=== PATIENT | male | born 1950 | race Caucasian/White ===

== ENCOUNTER 2016-04-22 09:44 | Inpatient (IN) | payer MEDICARE, OTHER ==
[2016-04-22] VITALS (9 sets, daily range): BP systolic 88–120; BP diastolic 47–86; PULSE 61–91; RESP 11–20; O2SAT 98–100
[~2016-04-22] VITALS: Ht 177.8 cm; Wt 85.9 kg
[2016-04-22] MEDS ORDERED: 0.9% Sodium Chloride 1,000 ML IV ONE (10:25)
--- NOTE | 2016-04-22 10:25 | ED.REPORT ---
HPI-General Illness Date of Service Apr 22, 2016 ED Provider: Hieu Conklin MD I was called to the bedside because the patient had lost consciousness while on the commode. Pt appeared pale with a heart rate in the low 30s on the monitor. He was initially unresponsive without palpable radial pulses or response to sternal rub. He was assisted to the bed by several nurses and began to regain consciousness. Good femoral pulses with heart rate in the 90's. Pt presented to the ED via EMS with concerns for multiple ground levels falls. He has montez history of DM and HTN who is anticoagulated on Coumadin for a CVA that occurred [id number]. He reports that he has been "losing his strength" and falling multiple times per day. Pt states that he lives with his son, and last fell this morning. He reports that he has had multiple trauma to his head during these falls. Pt denies any headache, chest pain, shortness of breath or previous loss of consciousness. He states that he does he pre-syncopal when he attempt to sit up quickly. Pt's son reports that he has been finding a large amount of blood coming from his rectum, reported soaking through his underwear and onto his bed while sleeping. Pt has no other complaints. Nursing Notes Stated Complaint: GROUND LEVEL FALL Chief Complaint: Multiple Trauma/Fall Nursing Notes Reviewed: Yes Allergies: Coded Allergies: hydromorphone (Verified Adverse Reaction, Intermediate, Agitation, 04/22/16) Scheduled Aspirin (Aspirin) 81 Mg Tablet 81 MG PO DAILY Atenolol (Atenolol) 25 Mg Tablet 25 MG PO DAILY Atorvastatin (Lipitor) 20 Mg Tablet 20 MG PO DAILY Losartan Potassium (Losartan Potassium) 50 Mg Tablet 50 MG PO DAILY Metformin (Metformin) 500 Mg Tablet 500 MG PO DAILY Omeprazole Magnesium (Prilosec Otc) 20 Mg Tablet. 20 MG PO DAILY Warfarin Sodium (Warfarin Sodium) 2.5 Mg Tablet 2.5 MG PO T,W, TH, S, S Warfarin Sodium (Warfarin Sodium) 2.5 Mg Tablet 1.25 MG PO M, F General Time Seen by MD: 10:01 Chief Complaint Other (Multiple Falls) Hx Obtained From: Patient, Son Arrived By: Ambulance Sudden in Onset?: Yes Onset Occurred: Onset unknown Symptom Duration: Since onset Caused by: Accidental Severity: Current: No pain currently Severity: Maximum: No pain Similar Sx Previous: Yes Past Medical History Past Medical History Anticoagulated on Coumadin from CVA Heart attack in 1988 Reports: Diabetes mellitus, Hypertension Ambulatory Status Independent Review of Systems Full Review of Systems Constitutional: Denies: Chills, Fever, Malaise, Weakness - generalized Respiratory: Denies: Non-productive cough, Shortness of breath, Wheezing Cardiovascular: Denies: Chest pain GI: Denies: Abdominal pain, Constipation, Diarrhea, Nausea, Vomiting Male: Denies Dysuria, Denies Flank pain, Denies Urinary frequency, Denies Urinary urgency Musculoskeletal: Denies: Back pain, Neck pain Neurologic: Reports: Syncope, Weakness, Denies: Change LOC, Dizziness, Headache Complete sys rev & neg: except as marked. Physical Exam Vital Signs Vital Signs Date Time Temp Pulse Resp B/P Pulse Ox O2 Delivery O2 Flow Rate FiO2 04/22/16 10:28 62 11 120/80 100 Room Air 04/22/16 09:55 36.7 77 102/66 100 Room Air Initial VS: Reviewed Neck: Supple, Non-tender, Full range of motion Respiratory: Breath sounds normal, Clear to auscultation, No respiratory distress Abdomen / GI: Soft, Non-tender, No guarding, No rebound, No distention Neurologic: Alert, Oriented, Nonfocal General/Constitutional: Awake, Alert, Well appearing, Well developed, Well nourished, Cooperative Appearance / Presentation: Positive: Pale Good radial and femoral pulses No signs of soft tissue injury Ecchymosis about bilateral knees Diaphoretic Head / Eyes: Atraumatic, Normocephalic, PERRL, EOMI No obvious signes of trauma to head, face or scalp ENT: Atraumatic, Airway patent, Pharynx NL Mouth: Positive: Mucous membranes dry Cardiovascular: Heart rate NL, Regular rhythm, Heart sounds NL, No gallop, No murmurs, No rubs No calf swelling or tenderness Rectum / Perineum: Atraumatic Large patch of ecchymosis about right lateral thigh Several external hemorrhoids without active bleeding Brown stool present Interpretation & Diagnostics Lab Results Interpretation Result Diagram: 04/22/16 1025 04/22/16 1130 Test 04/22/16 10:25 04/22/16 11:30 White Blood Count 10.8th/mm3 (3.8-10.1) Red Blood Count 2.29mil/mm3 (4.40-5.80) Hemoglobin 7.7g/dL (13.8-17.2) Hematocrit 22.8% (41.0-50.0) Mean Corpuscular Volume 99.6fL (81-100) Mean Corpuscular Hemoglobin 33.6pg (27.0-35.0) Mean Corpuscular Hemoglobin Concent 33.8% (32.0-37.0) Red Cell Distribution Width 13.2% (12.3-15.4) Platelet Count 79bil/L (150-400) Neutrophils (%) (Auto) 67.0% (40-74) Lymphocytes (%) (Auto) 22.3% (14-46) Monocytes (%) (Auto) 10.3% (4-12) Eosinophils (%) (Auto) 0.1% (0-5) Basophils (%) (Auto) 0.1% (0-3) Prothrombin Time 102.8sec (8.1-12.5) Prothromb Time International Ratio 9.18ratio Sodium Level 136mEq/L (134-144) Potassium Level 4.6mEq/L (3.5-5.2) Chloride Level 94mEq/L (97-108) Carbon Dioxide Level 19mmol/L (18-29) Blood Urea Nitrogen 25mg/dL (8-27) Creatinine 1.94mg/dL (0.76-1.27) Estimat Glomerular Filtration Rate 37mL/min (>59) Glucose Level 149mg/dL (60-99) Lactic Acid Level 4.3mmol/L (0.4-2.0) Calcium Level 8.0mg/dL (8.5-10.1) Magnesium Level 1.0mg/dL (1.6-2.6) Total Bilirubin 1.9mg/dL (0.0-1.2) Aspartate Amino Transf (AST/SGOT) 232U/L (0-50) Alanine Aminotransferase (ALT/SGPT) 78U/L (0-44) Alkaline Phosphatase 59U/L (25-160) Troponin T < 0.010ug/L (0.0-0.011) Pro-B-Type Natriuretic Peptide 7222pg/mL (0-376) Total Protein 7.1g/dL (6.4-8.4) Albumin 3.3g/dL (3.4-5.0) Alcohol, Quantitative < 10mg/dL (0-10) ECG Interpretation ECG Interpretation: SR - 63 Anteroseptal Q waves Borderline ST elevation, less than 1 cm in anteroseptal leads Diffuse T wave abnormalities in anterolateral leads with t wave flattening and inversions No prior EKG available Time: 10:26 Interpreted by: ED physician X-Ray Chest Interpretation Chest Xray Interpretation: IMPRESSION: A No acute cardiopulmonary disease process. Dictated by: Michaela Reyna MD, PhD on 04/22/2016 at 11:27 Interpretation / Wet Read by: Interpret - Radiologist X-Ray Interpretation Xray Interpretation: IMPRESSION: No fracture. No acute osseous lesion. If there are persistent symptoms or clinical suspicion for pathology, then repeat radiographs or advanced imaging (CT, MRI or bone scan) should be considered for further evaluation. Dictated by: Michaela Reyna MD, PhD on 04/22/2016 at 11:27 X-Ray Ordered: Hip right Interpretation / Wet Read by: Interpret - Radiologist CT Head Interpretation IMPRESSION: No acute intracranial disease process. Dictated by: Michaela Reyna MD, PhD on 04/22/2016 at 11:03 Interpretation / Wet Read by: Interpret - Radiologist Re-Eval/Medical Decision Med Decision/Clinical Course This is a 65-year-old male with a history of prior CVA, on Coumadin for unclear reasons who presents emergency Department with generalized weakness and multiple ground-level falls recently. Shortly after his arrival I am called to the bedside because he lost consciousness while on the commode. He appeared pale/ashen in appearance with a heart rate of 30 on the monitor and no palpable radial pulses. He was immediately transferred to the bed by which time his heart rate increased to 90 and he had strong femoral pulses. He had initial blood pressure upon reevaluation in the 80s over 40s though this improved to a map of greater than 65. IV access was obtained and IV fluid bolus was administered. Laboratory studies were notable as below: Leukocytosis: 10.8 Hematocrit: 22.8, Significantly decreased from prior in 2007 of 45.2 BUN: 25 Creatinine: 1.94 very increased from baseline of 1 Glucose within normal limits Calcium: 8 Magnesium: 1 Total bilirubin: 1.9 AST: 232 ALT:78 Troponin: neg BNP: 7222 INR: 9.18 The patient's supratherapeutic INR and he was treated with 10 mg IV vitamin K. The patient's magnesium was repleted. EKG was notable as above. CT head obtained in the setting of the suprapubic INR and multiple ground-level falls demonstrated no acute intracranial hemorrhage. The patient's fecal matter was noted to be brown in color without any melanotic appearance or bright red blood. Rectal examination revealed no bright red blood or obvious active source of bleeding though the patient's son reported that he has had bright red blood in his underwear intermittently as of late. At this time, the patient is rapidly stable with good IV access so he requires admission or further workup of his significant anemia, acute kidney injury, electrolyte abnormalities, elevated LFTs, elevated bilirubin and supratherapeutic INR. We will likely require consultation to GI and endoscopy. While he had an episode of severe bradycardia and hypotension I feel that the primary etiology of this was vasovagal as opposed to acute blood loss anemia to his clinical picture is not entirely clear. He will require close monitoring. He was transferred in stable condition. Source of Hx: Old records, Family Time of Eval: 12:31 Re-Evaluation/Progress Note: Pt is rechecked and informed of his labs and the plan to admit him to the hospital at this time. He understands and agrees, all questions are addressed. Consultation : Referral / Consult Name: Jaron Keane DO Consulted With: Hospitalist Call Returned at: 12:46 Mechanical Commissioning Engineer: Will see patient, Agrees with plan, Accepts admit Counseled Regarding: Diagnosis, Lab results, Need for admission Discharge & Departure Primary Impression: Syncope Syncope type: unspecified Qualified Code: R55 - Syncope and collapse Additional Impressions: Hypotension Hypotension type: unspecified hypotension type Qualified Code: I95.9 - Hypotension, unspecified Bradycardia Severe anemia Acute renal failure Acute renal failure type: unspecified Qualified Code: N17.9 - Acute kidney failure, unspecified Elevated transaminase level Rectal bleed Fall from ground level Disposition: ADMITTED TO HOSPITAL Discharge Condition All VS Reviewed: Yes Condition: Stable Referrals: Hosea Groves DO (PCP) Crit Care Except Billable Proc Time Spent: 135-164 minutes Services Performed: Patient management by me, Time spent at bedside, Reviewing test results, Reviewing imaging, Discussing patient care, Documentation in record, Time with fam/surrogate Scribe Attestation Portions of this note were transcribed by Pratibha Gillespie. I, Dr. Conklin personally performed the history, physical exam and medical decision-making; I reviewed and confirmed the accuracy of the information in the transcribed note. Signed by: Skyler Ricci, 04/22/2016 [Time]. copies to: Hosea Groves Beck O MD Apr 22, 2016 10:25 DANIEL GILLESPIE Apr 22, 2016 10:30
--- NOTE | 2016-04-22 11:04 | DRSVH ---
PROCEDURE: CT BRAIN WITHOUT CONTRAST ([id number]) INDICATIONS: trauma, coumadin TECHNIQUE: Noncontrast 4.5 mm thick angled axial sections acquired from the foramen magnum to the vertex, with c oronal reformats. COMPARISON: [facility], CT, BRAIN W/O CONTRAST, 10/23/2007, 21:27. [facility], CT, BRAIN W/O CONTRAST, 10/29/2000, 13:25. FINDINGS: Image quality: Excellent. CSF spaces: Basal cisterns are patent. No extra-axial fluid collections. The ventricles are symmet abbey in size and shape. Brain: No intracranial bleeds or masses. There is cerebral volume loss for age, with resultant vent ricular and sulcal prominence. Chronic right frontal and right basal ganglia infarcts noted. There ar e periventricular and deep white matter chronic small vessel ischemic changes. There is intracranial internal carotid artery atherosclerosis. Skull and face: Calvarium and visualized facial bones appear intact, without suspicious lesions. Sinuses: Visualized sinuses and mastoids are clear. IMPRESSION: No acute intracranial disease process. Dictated by: Michaela Reyna MD, PhD on 04/22/2016 at 11:03 Approved by: Michaela Reyna MD, PhD on 04/22/2016 at 11:03
[2016-04-22] MEDS ORDERED: LISI30TA5 PO (11:16)
[2016-04-22] MEDS ORDERED: WARF2.5T82 PO ×2 (11:16)
[2016-04-22] MEDS ORDERED: METF500T4 PO (11:16)
[2016-04-22] MEDS ORDERED: ATEN25TA PO (11:16)
[2016-04-22] MEDS ORDERED: ASPI-973 PO (11:16)
[2016-04-22] MEDS ORDERED: ATOR20TA PO (11:16)
[2016-04-22] MEDS ORDERED: OMEP20TA24 PO (11:16)
--- NOTE | 2016-04-22 11:28 | DRSVH ---
PROCEDURE: X-RAY PELVIS, ONE OR TWO VIEWS ([id number]) INDICATIONS: GROUND LEVEL FALL TECHNIQUE: One view(s) of the pelvis acquired. COMPARISON: None. FINDINGS: Bones: No fractures or dislocations. No suspicious bony lesions. Bilateral hip osteoarthritis noted . Soft tissues: Visualized bowel gas pattern is normal. No suspicious soft tissue calcifications. IMPRESSION: No fracture. No acute osseous lesion. If there are persistent symptoms or clinical suspi cion for pathology, then repeat radiographs or advanced imaging (CT, MRI or bone scan) should be cons idered for further evaluation. Dictated by: Michaela Reyna MD, PhD on 04/22/2016 at 11:27 Approved by: Michaela Reyna MD, PhD on 04/22/2016 at 11:27
--- NOTE | 2016-04-22 11:29 | DRSVH ---
PROCEDURE: X-RAY CHEST ONE VIEW, PORTABLE ([id number]) INDICATIONS: ALTERED MENTAL STATUS TECHNIQUE: One view of the chest was acquired. COMPARISON: None. FINDINGS: Surgical changes and devices: None. Lungs and pleura: No pleural effusions or pneumothorax. Lungs are clear. Mediastinum: Mediastinal contours appear normal. Heart size is normal. Bones and chest wall: No suspicious bony lesions. Overlying soft tissues appear unremarkable. IMPRESSION: A No acute cardiopulmonary disease process. Dictated by: Michaela Reyna MD, PhD on 04/22/2016 at 11:27 Approved by: Michaela Reyna MD, PhD on 04/22/2016 at 11:27
[2016-04-22 11:31] LABS: BASOPHILS % (AUTO) 0.1 % (0-3); EOSINOPHILS % (AUTO) 0.1 % (0-5); MONOCYTES % (AUTO) 10.3 % (4-12); Mean Corpuscular Hemoglobin 33.6 pg (27.0-35.0); Mean Corpuscular Volume 99.6 fL (81-100); Platelet Count 79 bil/L (150-400)
[2016-04-22 12:10] LABS: TROPONIN T < 0.010 ug/L (0.0-0.011)
[2016-04-22 12:10] LABS: INR 9.18 ratio
[2016-04-22] MEDS ORDERED: Magnesium Sulf 2 Gm/50mL Water 2 GM in IV Premix 1 EACH IV ONE (12:25)
[2016-04-22] MEDS ORDERED: Phytonadione (Adult) 10 MG in Dextrose 5%-Pha MIX 50 ML IV ONE (12:25)
[2016-04-22] MEDS ORDERED: Alum-Mag Hydrox-Simeth 30 mL Suspension PO PRN (13:00)
[2016-04-22] MEDS ORDERED: Ondansetron 2 mg/mL 2 mL Inj IVPUSH PRN (13:00)
[2016-04-22] MEDS ORDERED: Polyethylene Glycol (PEG) 17 Gm Powder PO PRN (13:00)
[2016-04-22] MEDS ORDERED: 0.9% Sodium Chloride 100 ML ONE (13:04)
[2016-04-22] MEDS ORDERED: LOSA50TA37 PO (14:08)
--- NOTE | 2016-04-22 14:52 | PCM.HPMED ---
Subjective Date of Service Apr 22, 2016 Primary Provider: Admitting Physician: Jaron Keane DO Primary Care Physician: Hosea Groves DO Attending Physician: Jaron Keane DO Admit Status: From the Emergency Department, Admit to [place] Team Chief Complaint: Ground level falls History of Present Illness: Mr. Juan Carlos Ricci is a pleasant 65 year old gentleman with history of CAD s/p RCA stent x2, atrial fibrillation on long-term anticoagulation, CVA in 2007, and HTN , that presented to [facility] with recurrent GLFs, reported possible rectal bleeding , and LOC while defecating. He was admitted for evaluation and treatment of supratherapeutic INR, recurrent GLFs, and suspected GI bleed. He states that he resides with his son, whom is also present at bedside. Today' s visit was prompted by recurrent GLFs, most recent the morning of admission. Reports multiple injuries incurred as result of recurrent falls. The son reports an instance of blood found soaked in the bedsheets, reported to be not a large amount, but enough to be visible. No other bleeding noted. The falls have been increasing over recent weeks, reports 20lb unintentional weight loss over recent year. [facility], review of PCP records indicate that FU was to be in 10 years. While he was using the bedside commode in the ED, he passed a bowel movement, lost consciousness, appeared pale, and had a bradycardic event. He resolved and recovered spontaneously without residual effects. Denied feeling dizzy at that time. Son reports that he has been having difficulty with positional transitions recently. Patient denies any associated dizziness, profound bleeding, acute vision changes , headache, chest pain, shortness of breath, abdominal pain Admits to increase number of falls, unintentional weight loss, weakness, unsteady gait In the ED: Afebrile, BP 111/86, P66; stat CXR, pelvis Xr did not reveal any acute fractures; INR found to be 9.18, Mg 1.0, LA 4.3; 10mg vit K x1 stat. No blood observed at rectum. Was last seen at [facility] clinic 04/10, INR 2.8 with no changes to medications. Patient denies any recent changes to medications, denies any deviation from dosing recommendations. [facility]CP: [facility] Patient was seen in ED, in stable condition. Awaiting open bed in [facility]. All questions and concerns were addressed. Review of Systems: Complete ROS obtained; pertinent positives and negatives as noted in HPI Allergies Coded Allergies: hydromorphone (Verified Adverse Reaction, Intermediate, Agitation, 04/22/16) Home Medications From ED documentation: Aspirin (Aspirin) 81 Mg Tablet 81 MG PO DAILY Atenolol (Atenolol) 25 Mg Tablet 25 MG PO DAILY Atorvastatin (Lipitor) 20 Mg Tablet 20 MG PO DAILY Lisinopril (Lisinopril) 30 Mg Tablet 30 MG PO DAILY Metformin (Metformin) 500 Mg Tablet 500 MG PO DAILY Omeprazole Magnesium (Prilosec Otc) 20 Mg Tablet.dr 20 MG PO DAILY Warfarin Sodium (Warfarin Sodium) 2.5 Mg Tablet 2.5 MG PO T,W, TH, S, S Warfarin Sodium (Warfarin Sodium) 2.5 Mg Tablet 1.25 MG PO M, F PMH Atrial fibrillation on vermin exterminator anticoagulation CAD s/p RCA stent placement x2 HTN DM2 CVA Surgical History RCA stent placement Colonoscopy, reported per pt and [employer]: 2009 Family History Reports: Colon cancer, heart disease, diabetes Social History Occupation: Unemployed Hx Alcohol Use: Yes (3/DAY) Hx Substance Use: Yes (MARIJUANA- DAILY) Hx Tobacco Use: Yes Smoking Status: Light Tobacco Smoker (7-8 cigarettes per day) Living Arrangement: with Family (Son; local) Exam Vital Signs Vital Sign - Last Date Time Temp Pulse Resp B/P Pulse Ox O2 Delivery O2 Flow Rate FiO2 04/22/16 13:11 36.9 66 16 111/86 100 Room Air Exam General: AAOx3; pleasant and cooperative; no acute distress HENT: Atraumatic, normocephalic; sclera anicteric; mucus membranes moist Neck: Soft, trachea midline Cardiac: Irregular rate and rhythm at approx 110; No murmurs appreciated Respiratory: Adequate air flow all simms; mild coarse sounds at bilateral bases ; no wheeze Abdomen: Soft, nontender, nondistended Extremities: Multiple superficial wounds and ecchymoses noted BLLE; no edema Skin: Warm, dry Neuro: CNII-XII grossly intact: speech normal; facial expressions symmetric Psych: Appropriate mood, affect, and responses to questioning; good insight and judgment Lab and Diagnostics Result Diagram: 04/22/16 1025 04/22/16 1130 Assessment & Plan Mr. Juan Carlos Ricci is a pleasant 65 year old gentleman with history of CAD s/p RCA stent x2, atrial fibrillation on long-term anticoagulation, CVA in 2007, and HTN , that presented to [facility] with recurrent GLFs, reported possible rectal bleeding , and LOC while defecating. He was admitted for evaluation and treatment of supratherapeutic INR, recurrent GLFs, and suspected GI bleed. He was found to have an INR 9.18 in ED, provided 10mg vit K x1. - Hospital day one Ground level falls, recurrent, present on admission. Under investigation - Fall just prior to admission - CT head 04/22: No acute abnormalities, no acute bleeds - Pelvis XR 04/22: No fracture or osseous lesions noted - CXR 04/22: No acute abnormalities - PT eval - SUPERVISOR CHANNEL PROCESS consult to explore resources for additional care for son - TSH, fT4 - Echo 05/2013: EF45+/-5; LA dilation, mild MR - Repeat echo in am - Orthostatic vitals Normochromic normocytic anemia, chronicity unknown, present on admission. Monitored - On admit: Hb 7.7 Hct 22.8 - Guaiac stools - Trend q6h until presumed stable - Transfuse if Hb < 7.0 - Holding ASA Lactic acidosis, acute, present on admission. Ongoing - On admit: 4.3 - No s/sx of infection - Possibly secondary to alcohol use, dehydration, AMS - NS 100 - Trend q4h until normalized Supratherapeutic INR, acute, present on admission. Under therapy - On admit: 9.18 - 04/10 Protime INR: 2.8 - Vit K 10mg x1 - Monitor; repeat labs - Warfarin per pharmacy when appropriate to resume Atrial fibrillation on detention anticoagulation, chronic. Presumed stable - Resume home medications - Tele - Warfarin as noted above Hypomagnesemia, likely acute, present on admission. Under therapy - On admit: Mg 1.0 - Mg 2g x1 stat - Repeat labs Elevated transaminases, likely chronic, present on admission. Presumed stable - On admit: AST 232, ALT 78 - Likely secondary to chronic EtOH consumption Prediabetes, chronic, presumed stable. - HbA1c 02/2016: 5.7 - Holding metformin while hospitalized - Diabetic diet History of CVA, chronic. Presumed stable - PT eval as above - Continue statin - Resume ASA when appropriate HTN, essential, chronic, presumed stable - Losartan resumed Alcohol use disorder, chronic, present on admission. Ongoing - CIWA in place Tobacco use disorder, chronic, present on admission. Ongoing - Admits to long-term inhaled tobacco use - Nicotine patch 14mg daily - PRN: Fever/pain/antiemetic/bowel - DVT: SCDs only (at risk of bleeding) - GI: PPI - DIET: CC - Code: FULL CODE Patient status: Due to severity of presenting symptoms, risk of adverse events, and anticipated course of care, likely to remain > 2 midnights; admitted as INPT. Current needs include PT evaluation, SUPERVISOR CHANNEL PROCESS for additional resources, as patient is cared for by son. Anticipated DC approx 2-3 days from day of admission, if remains medically stable. Pain Evaluation: Adequate Pain Control GI Prophylaxis: Proton Pump Inhibitor VTE Prophylaxis: SCDs Resuscitation Status: CPR: Attempt Resuscitation Time spent 65 minutes Attending Statement I reviewed this patients chart, discussed the plan of care with the resident and examined the patient. I agree with the above physical exam and assessment and plan. Ceci Aranda DO Apr 22, 2016 14:35 Jaron Keane DO Apr 22, 2016 18:06
--- NOTE | 2016-04-22 14:56 | NUR ---
PT consult received; however, pt with low Hct/Hgb, syncopal episode in ED and awaiting medical workup prior to initiating eval.
--- NOTE | 2016-04-22 14:56 | PCM.CONPHA ---
Subjective Requesting Provider: Ceci Aranda DO Reason for Pharmacy Consult: Anticoagulation Management Assessment/Plan Assessment/Plan Pharmacy to dose warfarin: INR on admit=9.18 Patient was given Vitamin K 10mg IV in the ER. No warfarin today. Warfarin home dose is 2.5mg [place],Tu,We,Th,Sa and 1.25mg Mo,Fr HCT=22.8 PLT=79 Liver enzymes are elevated. Pt has a history of HI, HTN, DM, CVA CHADSVASC=5 INRs have been ordered x 7. Pharmacy will monitor daily. Ayah Briones [facility] Apr 22, 2016 14:56
[2016-04-22] MEDS: 0.9% Sodium Chloride 1,000 ML IV SCH ×2 (17:31→23:00)
[2016-04-22 18:18] LABS: APPEARANCE,URINE CLEAR (CLEAR,HAZY); COLOR,URINE YELLOW (YELLOW); OCCULT BLOOD,URINE NEGATIVE (NEGATIVE); PH,URINE 5.5 (5.0-8.0); UROBILINOGEN,URINE NORMAL (NORMAL)
--- NOTE | 2016-04-22 18:38 | NUR ---
ADMIT TO [facility] Patient arrived to [facility] at 1500, immediately had diarrhea x2, two complete bed changes. Stool and urine samples sent. IV NS 100, running patient fall risk, very unsteady on feet, Hx of multiple falls in last week. Bruising of right hip, bilateral elbows, back and arms. INR 9.1, vit K given ER. Mg 1.0 rider given and Mg. now 1.4. Lactic was 4.3 is now 3.8, Cr 1.9, BNP 7,222, Peter 1.9, AST 239, ALT 78, CIWA orders. ECHO and SCD's ordered. Patient has recent history of GI bleed per family,Hgb 7, Hct 22, wbc 10.8. Patient has distant Hx of CVA, left leg weakness. PATIENT IS A FALLS RISK should be on bedrest/bedpan until more stable. Two person assist. Patient VSS have been stable, telly SR 70's, RA, denies nausea and pain.
--- NOTE | 2016-04-22 20:00 | NUR ---
care update met with patient and daughter. reviewed care plan. reviewed fall precautions placed on argelia alarm. daughter plans to stay the night in room.
--- NOTE | 2016-04-22 21:25 | NUR ---
critical hgb called hgb 5.[address] Prince. plan to trx patient to room 2009. stat crossmatch ordered. vs stable. stat crossmatch ordered. care ongoing.
--- NOTE | 2016-04-22 22:12 | NUR ---
transferr patient trx to room 2008. nurse report called to mansi herrera. bedside report also given. family at bedside. updated to [facility].
--- NOTE | 2016-04-22 22:30 | NUR ---
Admit note. Patient was admitted into room 2008 from [facility] for a GI bleed and low magnesium level. Report was received from night club manager RN on [facility] and the patent was settled in bed. Patient denies pain and is resting in bed without signs of distress. ABD is soft, non-tender and active bowel sounds are present. NS infusing at 100ml/hr into the patient right IV catheter without complication. Patient reports that for the last week he has been having black stools and that he had a syncopal episode that brought him into the hospital. Patient vitals stable. Provider in the room with the patient during admit process and consent for blood transfusion was signed. Provider explained risks and benefits of receiving blood.
[2016-04-22 22:43] LABS: INR 2.4 ratio
[2016-04-22] MEDS: 0.9% Sodium Chloride 250 ML IV SCH (22:45)
[2016-04-23] VITALS (21 sets, daily range): BP systolic 107–147; BP diastolic 63–88; PULSE 63–83; RESP 12–18; O2SAT 96–99
--- NOTE | 2016-04-23 01:48 | PCM.PNMED ---
Subjective Date of Service Apr 23, 2016 Subjective NOTE: THIS IS A SHORT NOTE FOR FILE UPDATE Exam Vital Signs Vital Sign - Last Date Time Temp Pulse Resp B/P Pulse Ox O2 Delivery O2 Flow Rate FiO2 04/23/16 00:45 36.9 72 12 107/66 04/23/16 00:30 96 Room Air Intake and Output 04/22/16 04/22/16 04/23/16 Cumulative From/Thru 15:00 23:00 07:00 04/22/16 09:55 - 04/23/16 01:05 Intake Total 1000 ml 200 ml 1200 ml Balance 1000 ml 200 ml 1200 ml Intake Oral 200 ml 200 ml IV Total 1000 ml 1000 ml # Voids 1 1 # Bowel Movements 3 3 Lab and Diagnostics Result Diagram: 04/22/16205404/22/16 1130 Assessment & Plan CHART UPDATE: Mr. Juan Carlos Ricci is a pleasant 65 year old gentleman with history of CAD s/p RCA stent x2, atrial fibrillation on long-term anticoagulation, CVA in 2007, and HTN , that presented to [facility] with recurrent GLFs, reported possible rectal bleeding , and LOC while defecating. He was admitted for evaluation and treatment of supratherapeutic INR, recurrent GLFs, and suspected GI bleed. He was found to have an INR 9.18 in ED, provided 10mg vit K x1. The evening of 04/22/16, Mr. Ricci's hemoglobin dropped from 7+ to 5+ after 1 liter of fluid. Transferred from 3rd floor to second floor for 2 U blood transfusion. Ordered GI consult and talked to Dr. Mcok who will see patient in the a.m. He requested normalization of INR to 1.5 to scope. INR was 9+ on admission. ED gave vitamin K. I ordered 1 unit of FFP. with repeat INR in the a.m. No obvious signs of bleeding. GI Prophylaxis: Proton Pump Inhibitor VTE Prophylaxis: SCDs VTE Mechanical Devices: Intermittant Pneumatic CD Resuscitation Status: CPR: Attempt Resuscitation Shima Prince DO Apr 23, 2016 01:48
--- NOTE | 2016-04-23 03:29 | NUR ---
Blood note (unit one). Patient has received the first unit of RBC's and reports feeling well. No signs of an adverse reactions and vital signs remain stable.
--- NOTE | 2016-04-23 05:52 | NUR ---
Blood note (unit two). Patient tolerated second unit well. No signs of allergic reaction or signs of fluid overload. Patient reports feeling well and educated about signs of allergic reaction.
[2016-04-23 09:18] LABS: BASOPHILS % (AUTO) 0.1 % (0-3); Platelet Count 45 bil/L (150-400)
[2016-04-23 09:24] LABS: INR 1.46 ratio
[2016-04-23 09:29] LABS: EOSINOPHILS % (AUTO) 0.6 % (0-5); MONOCYTES % (AUTO) 9.4 % (4-12); Mean Corpuscular Hemoglobin 30.4 pg (27.0-35.0); Mean Corpuscular Volume 92.5 fL (81-100)
[2016-04-23 09:54] LABS: Phosphorus 3.4 mg/dL (2.5-4.9)
[2016-04-23 10:17] LABS: Magnesium 1.2 mg/dL (1.6-2.6)
[2016-04-23] MEDS: 0.9% Sodium Chloride 1,000 ML IV SCH ×2 (10:22→23:52)
[2016-04-23] MEDS ORDERED: Magnesium Sulf 2 Gm/50mL Water 2 GM in IV Premix 1 EACH IV ONE (10:30)
[2016-04-23] MEDS ORDERED: Pantoprazole 80 mg/100 mL NS Bolus IV ONE ×2 (10:30)
[2016-04-23] MEDS ORDERED: Pantoprazole 8 mg/Hr Infusion IV SCH ×2 (10:30)
[2016-04-23] MEDS ORDERED: Lactated Ringer's 1,000 ML IV ONE (10:51)
[2016-04-23] MEDS ORDERED: Propofol 10,000 mCg/mL 20 mL Inj ONE ×2 (10:53→10:54)
[2016-04-23] MEDS ORDERED: fentaNYL-PF 50 mCg/mL 2 mL Inj ONE (11:21)
--- NOTE | 2016-04-23 13:09 | ENDO ---
[address] [address] ENDOSCOPY PROCEDURE PATIENT: TERESA MONSALVE : 1950 MR#: [id number] ADMIT: 04/22/2016 JOB ID: [id number] TYPE OF OPERATION: Esophagogastroduodenoscopy. PREOPERATIVE DIAGNOSIS: Melena and anemia. POSTOPERATIVE DIAGNOSIS: Normal upper endoscopy. ANESTHESIA: Monitored anesthesia care. COMPLICATIONS: None. BLOOD LOSS: Minimal. DESCRIPTION OF PROCEDURE: After risks and benefits explained to patient, informed consent was obtained. After anesthesia administered, upper endoscope was inserted in mouth and esophagus, stomach, second portion of duodenum, and mucosa carefully examined. After procedure done, scope withdrawn, procedure terminated. FINDINGS: Upon inspection of esophagus, the esophagus was completely normal without masses, ulcers, lesions or varices. Z-line located at 45 cm from incisors. Upon entering the stomach, the stomach was also completely normal without ulcers, masses, or lesions. Retroflexion was normal without Barbara-Pelayo tear. Duodenal bulb, first and second portion were normal. IMPRESSIONS: Normal upper endoscopy. RECOMMENDATIONS: 1. Stop Protonix drip. 2. Start clear liquid diet. 3. Alcohol cessation. 4. Golteytl prep tonight for colonoscopy tomorrow MTDD
--- NOTE | 2016-04-23 13:25 | PCM.PNMED ---
Subjective Date of Service Apr 23, 2016 Subjective Patient is doing well. No nausea or vomiting. He is tolerating clear liquids. No rectal bleeding. He is status post EGD which was unremarkable. His Protonix drip stopped. He notes progressive weakness of the legs last several days and was essentially bedbound for 2 days because of leg weakness. He is a somewhat vague about the lengthening severity of rectal bleeding. Exam Vital Signs Vital Sign - Last Date Time Temp Pulse Resp B/P Pulse Ox O2 Delivery O2 Flow Rate FiO2 04/23/16 12:02 36.8 80 135/79 98 Room Air 04/23/16 11:48 14 Intake and Output 04/22/16 04/22/16 04/23/16 Cumulative From/Thru 15:00 23:00 07:00 04/22/16 09:55 - 04/23/16 05:51 Intake Total 1000 ml 200 ml 817 ml 2017 ml Output Total 550 ml 550 ml Balance 1000 ml 200 ml 267 ml 1467 ml Intake Oral 200 ml 0 ml 200 ml IV Total 1000 ml 140 ml 1140 ml Packed Cells 677 ml 677 ml Output Urine Total 550 ml 550 ml # Voids 1 1 # Bowel Movements 3 3 Exam North 3. Fluent speech. Anicteric sclera Supple neck Lungs are clear normal effort. Heart is regular without murmur gallop or rub. Abdomen is distended but nontender. No organomegaly Extremities free of edema. Good pedal and radial pulses. Normal affect IVs and Medications Medications Reviewed: Medications were reviewed in detail Lab and Diagnostics Result Diagram: 04/23/16 0900 04/23/16 0900 Assessment & Plan 1. Acute rectal bleeding. MICHELL. This was present on admission and patient's normal upper endoscopy. He notes a history of hemorrhoids. The patient is being prepped for colonoscopy tomorrow, to liquid diet until then. With blood products as needed. #2. Acute blood loss anemia. POA. Patient is status post 2 units of packed red blood cells. We will continue watch him with serial hematocrits #3. Coumadin coagulopathy. POA. Patient was reversed with one of FFP and vitamin K. Bleeding appears to have clinically stopped. We will follow his pro time. Hold Coumadin for now. 4. Syncopal episode. Prior to admission. Likely related to acute blood loss anemia. Follow clinically on telemetry. 5. Progressive bilateral leg weakness. POA. Suspect this may be related to a subacute anemia. We will follow this clinically and see if patient improves with physical therapy evaluation and maintenance of hematocrit. 6. CAD with history of PCI. POA. Clinically stable. Patient is off antiplatelets until his colonoscopy is performed. We will follow clinically. 7. DM 2. POA. Will follow with correctional lispro low-dose Lantus at bedtime. 8. Remote CVA. POA. Follow clinically. 9. Hypomagnesemia. Will replete with 2 g IV and follow clinically. Pain Evaluation: Adequate Pain Control GI Prophylaxis: Proton Pump Inhibitor VTE Prophylaxis: SCDs VTE Mechanical Devices: Intermittant Pneumatic CD Resuscitation Status: CPR: Attempt Resuscitation Time spent 30 min Beto Guadarrama MD Apr 23, 2016 13:25
--- NOTE | 2016-04-23 14:15 | NUR ---
9 beats of VT At 1410hrs patient had a 9 beat run of VT. patient denies any symptoms associated with it. Mg level low this am at 1.2. patient received 2 gm Mg rider earlier this am. repeating Mg at 1800hrs. Dr Guadarrama notified, no new orders. continue to monitor.
--- NOTE | 2016-04-23 15:41 | NUR ---
Evaluation completed. Please go to "Notes" then click on "Assessments and Notes" (bottom left corner of screen). Then select appropriate discipline tab on top of screen.
[2016-04-23] MEDS ORDERED: PEG/Electrolytes 4,000 mL Solution PO ONE ×2 (16:00→17:40)
--- NOTE | 2016-04-23 17:13 | NUR ---
Social Work Note: Initial Assessment Data& Assessment: EMR reviewed. SW met with pt and pt children at bedside to discuss discharge planning, SW role explained. Juan Carlos Ricci is a 65 year old male admitted on 04/22/2016 for syncope and hypotension. Pt has Medicare and [employer] supplemental insurance coverage. Pt sees Hosea Bowen DO for primary care but is in the process of establishing care with an MD in [employer]. Pt lives in [place] with his son where is he independent at baseline. Pt denies any DME use. Pt denies any HH or SNF hx. Pt denies any LTC insurance or VA benefits. PT is currently following pt. Pt reflects on the possibility of requiring DME at time of discharge. Pt family informed SW that they are apart of the [employer] and they help provide DME equipment to their members at no extra cost. Pt provided with DPOA paperwork to complete when possible. Pt family to transport pt home when medically ready. Pt and pt family deny any other needs at this time. SW to continue to follow if any needs arise. Plan: Anticipated discharge home via POV when medically ready. SW to follow to ensure there are no DME needs at time of discharge. Pt and pt family deny any other needs at this time. SW to continue to follow if any needs arise. KELLIE Flores Addendum: 04/23/16 at 1720 by ANDREW LUGO Amended: Links added.
[2016-04-23] MEDS: 0.9% Sodium Chloride 250 ML IV SCH ×2 (18:25→20:45)
--- NOTE | 2016-04-23 18:34 | NUR ---
Bowel prep/transfusion PRBC patient started bowel prep, GoLytely at 1730hrs. At 1820hrs patient experienced N/V x1. patient stating, "I think I drank it too fast". instructed patient to take a break from drinking GoLytely for approx 1 hour, see how he feels i 1 hour before resuming bowel prep. first unit of PRBC's started at 1820hrs. continue to monitor
[2016-04-23 18:43] LABS: INR 1.3 ratio
--- NOTE | 2016-04-23 18:59 | CONS ---
[address] [address] CONSULTATION REPORT PATIENT: TERESA MONSALVE : 1950 MR#: [id number] ADMIT: 04/22/2016 JOB ID: [id number] DATE OF SERVICE: 04/23/2016 REASON FOR CONSULTATION: Melena. HISTORY OF PRESENT ILLNESS: A 65-year-old, male with history of coronary artery disease status post RCA stent x2 in 1979, history of atrial fibrillation on Coumadin, stroke in 2007, hypertension who presents for consultation for melena for the past two months. The patient states she has had also history of alcohol abuse in which she drinks an average of two glasses of wine per day since the age of 20. Last drink was this past Saturday. The patient complains of melena for the past two months, one time per day. The patient states every time he drinks alcohol such as wine, then he has black stool. The patient denies any iron supplements or Pepto-Bismol or foods rich in iron. The patient never had an EGD but had a colonoscopy in 2009 which was normal. I have no records. The patient does have a family history of colon cancer in the mother diagnosed at age of 50, but no family history of inflammatory bowel disease or celiac disease. The patient denies bright red blood per rectum, nausea, vomiting, hematemesis, abdominal pain, change in bowel habits, or unintentional weight loss. PAST MEDICAL HISTORY: As stated above including type 2 diabetes. PAST SURGERIES: RCA stent placement. ALLERGIES: HYDROMORPHONE. HOME MEDICATIONS: 1. Aspirin. 2. Atenolol. 3. Lisinopril. 4. Lipitor. 5. Metformin. 6. Coumadin. 7. Prilosec. FAMILY HISTORY: Positive for mother with colon cancer at age of 50 but no inflammatory bowel disease or celiac disease. SOCIAL HISTORY: He does marijuana daily. He does smoke 7-8 cigarettes per day. He has been drinking two glasses of wine average per day since the age of 20. REVIEW OF SYSTEMS: The patient denies headache, blurred vision, nausea, vomiting, chest pain, shortness of breath, abdominal pressure, skin rash or joint pain. PHYSICAL EXAMINATION: Vital signs upon presentation: Temperature is 36.9, pulse 62, respiratory rate 16, blood pressure 126/76, satting 98% on room air. General: Head has no scars. Eyes anicteric. Throat supple. Lungs: Clear to auscultation bilaterally. Cardiovascular: Regular rhythm and rate. Abdomen: Soft, nondistended, nontender. Normal bowel sounds. Extremities show no cyanosis, clubbing or edema. LABS: Show on admission PT 102, INR of 9.18, now PT 26.1, INR 2.4. White blood cell 10.8, hemoglobin 7.7 down to 5.6, hematocrit 22.8 down a 16.9, MCV 99, platelet count 79. Sodium 136, potassium 4.6, chloride 94, bicarb 19, BUN 25, creatinine 1.9, glucose 149, lactic acid on admission was 4.3, now 1.7, calcium 8.0, magnesium 1.4, total bili is 1.9, AST 232, ALT 78, alk phos 79, ProBNP 7222, albumin 3.3, total protein 7.1. Serum alcohol was less than 10. ASSESSMENT/PLAN: This is a 65-year-old, male with a history of alcohol abuse in which he drinks at least two glasses of wine per day since age of 20, daily marijuana use, coronary artery disease status post right coronary artery stent, atrial fibrillation on Coumadin, stroke in 2007, hypertension, diabetes type 2 with a family history of colon cancer mother diagnosed at age of 50 presents here with anemia, melena and transaminitis. The patient's transaminitis is most likely due to acute alcoholic hepatitis given the fact the AST/ALT ratio is greater than 2:1. The patient's melena differential diagnosis includes peptic ulcer disease bleed which is most likely given his history of alcohol use versus gastritis versus esophagitis versus duodenitis versus arteriovenous malformation. RECOMMENDATIONS: 1. The patient will need an EGD with anesthesia given his alcohol use and marijuana use, but the INR must be less than 1.6 prior to the procedure. 2. Please transfuse packed red blood cells, per hospitalist team. 3. Protonix drip. 4. Abdominal ultrasound to rule out cirrhosis. 5. Serial hematocrits. 6. Alcohol cessation.
[2016-04-24] VITALS (11 sets, daily range): BP systolic 113–154; BP diastolic 51–85; PULSE 54–70; RESP 14–20; O2SAT 96–99
--- NOTE | 2016-04-24 00:15 | NUR ---
BOWEL PREP/LAB Finished the rest of bowel prep and stools are now watery and clear. Denies further nausea. No pain. Finished 2nd unit of blood without problems and f/u HCT was 32. Daughter at bedside and is spending the night. Up to bedside commode with standby assist due to some weakness in leg.
[2016-04-24 03:49] LABS: INR 1.29 ratio
[2016-04-24] MEDS: 0.9% Sodium Chloride 1,000 ML IV SCH ×2 (09:55→15:00)
--- NOTE | 2016-04-24 10:43 | DRSVH ---
PROCEDURE: US ABDOMEN INDICATIONS: POSSIBLE ULCER TECHNIQUE: Real-time scanning was performed of the abdominal and retroperitoneal organs, with image documentatio n. COMPARISON: None. FINDINGS: Liver length: 16.41 cm Gallbladder Wall Thickness: 3 mm CHD: 3.20 mm CBD: 6.90 mm Spleen length: 8.45 cm Right kidney length: 12.01 cm Left kidney length: 12.06 cm Aorta(Proximal): 2.35 cm Aorta(Mid): 1.99 cm Aorta(Distal): 1.55 cm RCIA: 1.05 cm LCIA: 1.14 cm Liver: Liver is normal in size and homogeneous in echotexture. Gallbladder: Is poorly distended and not well-seen. Negative sonographic Shafer's sign. No pericholec ystic fluid. No wall thickening. Biliary ducts: Intrahepatic bile ducts are non-dilated. Extrahepatic bile duct caliber is normal. Normal is 6-7 mm or less in diameter, or 10 mm or less post-cholecystectomy. Pancreas: Visualized portions of the pancreas are sonographically normal. Spleen: Spleen is normal in size and homogeneous in echotexture. Kidneys: Kidneys are normal in size and echotexture. No hydronephrosis or nephrolithiasis. No que d masses. Aorta: Visualized aorta is normal in caliber at less than 3 cm. Iliacs: Proximal common iliac arteries are normal in caliber at less than 2.5 cm. IVC: Intrahepatic inferior vena cava is patent. Miscellaneous: Trace amount of free fluid at the inferior aspect of the right hepatic lobe. IMPRESSION: 1. Trace amount of perihepatic ascites. 2. Suboptimal dilation of the gallbladder secondary to poor distention. No definite cholecystitis. Dictated by: Panchito Ingram M.D. on 04/24/2016 at 10:41 Approved by: Panchito Ingram M.D. on 04/24/2016 at 10:41
[2016-04-24] MEDS ORDERED: fentaNYL-PF 50 mCg/mL 2 mL Inj ONE (11:25)
[2016-04-24] MEDS ORDERED: Propofol 10,000 mCg/mL 20 mL Inj ONE (12:02)
--- NOTE | 2016-04-24 12:30 | NUR ---
Patient Off Unit Patient off floor to endoscopy for procedure.
--- NOTE | 2016-04-24 13:08 | NUR ---
Ambulate w/Nsg Pt is released to ambulate w/nsg 2-3x/day as pt tolerates. PT will cont to see 2x/week for progression of AD and continued practice of stair navigation.
--- NOTE | 2016-04-24 13:14 | PCM.HPANE ---
Patient Data Surgeon Admitting Provider:Jaron Keane DO Attending Provider:Jaron Keane DO Primary Care Physician:Hosea Groves DO Other Provider: Reason for Visit Syncope,Hypotension,Bradycardia SYNCOPE,HYPOTENSION,BRADYCARDIA Ht/WT & BMI Height (Feet): 5 Height (Inches): 10.00 Weight (Kilograms): 79.700 Body Mass Index 25.00 Allergies Coded Allergies: hydromorphone (Verified Adverse Reaction, Intermediate, Agitation, 04/22/16) Past Anesthesia History Anesthesia History: Denies:: Anesthesia Reactions Diabetes History Hx Diabetes?: Yes Current Bedside Blood Glucose: 89 MRSA MRSA: No Medications Blood Thinner: Coumadin Last Dose Blood Thinner: Apr 21, 2016 Reported Medications Losartan Potassium 50 Mg [id number] Mg PO DAILY #90 04/22/16 Atorvastatin (Lipitor)20 Mg [id number] Mg PO DAILY Ref 0 04/22/16 Metformin 500 Mg [id number] Mg PO DAILY Ref 0 04/22/16 Atenolol 25 Mg Jscsau61 Mg PO DAILY #30 TABLET Ref 0 04/22/16 Omeprazole Magnesium (Prilosec Otc)20 Mg Tablet.dr20 Mg PO DAILY #1 PKG Ref 0 04/22/16 Aspirin 81 Mg Jaxctj29 Mg PO DAILY Ref 0 04/22/16 Warfarin Sodium 2.5 Mg Tablet1.25 Mg PO M, F 30 Days Ref 0 04/22/16 Warfarin Sodium 2.5 Mg Tablet2.5 Mg PO T,W, TH, S, S 30 Days Ref 0 04/22/16 Discontinued Reported Medications Lisinopril 30 Mg Xfyitm85 Mg PO DAILY 30 Days Ref 0 04/22/16 History History of ENT Problems?: No HEENT History: Denies:: Hearing Problem Denture Type: Partial- Lower Hx of Heart Problems?: Yes Cardiovascular History: Positive for:: Cardiac Surgery (stents 1995 and 1997) Hypertension Irregular Heartbeat (hx of afib) Denies:: Chest Pain Congestive Heart Failure Edema Heart Murmur Pacemaker Thrombophlebitis Hx of Respiratory Problem?: No Respiratory History: Denies:: Asthma COPD Chest Surgery Dyspnea Emphysema Hemoptysis Pneumonia Tuberculosis Hx Neurologic Problems?: Yes Neurological History: Positive for:: CVA (October 2007,left sided weakness) Dizziness Denies:: Alzheimer's Disease Dementia Headaches Parkinson's Disease Seizures Hx of GI Problems?: Yes Gastrointestinal History: Positive for:: Gastroesphageal Reflux Heartburn Denies:: Diverticulitis Gastrointestinal Bleeding Hepatitis Hiatal Hernia Rectal Bleeding Hx of Problems?: No Genitourinary History: Denies:: HX of Hemodialysis Kidney Stones Urinary Tract Infection HX of Peritoneal Dialysis: No Male Hx: Positive for:: Testicular Surgery (vasectomy) Denies:: Prostate Problems Scrotal Mass Hx Musculoskeletal Problems?: No Musculoskeletal History: Denies:: Back Injury Joint Replacement Musculoskeletal Trauma Hx of Psycho/Social Problems?: No Hx Surgeries?: Yes (stents, endoscopies) Other History: Positive for:: Cancer (skin cancers on face removed) Denies:: Hospitalization (CVA, heart attack, stents, TIA) Thyroid Disease History Blood Transfusions: Positive for:: Accept Blood Products? Denies:: Blood Transfusions Hx Diabetes: YesBedside Blood Glucose: 89 Occupation: Unemployed Hx Alcohol Use: Yes (3/DAY)Alcoholic Drinks Per Day: 2 mixed drinks/dayHx Substance Use: Yes (MARIJUANA- DAILY) Smoking Status: Light Tobacco Smoker Have You Smoked inLast 12 mo: Yes (quit 04/21/16)Approx How Many Cigarettes/day : 6-8 cigarettes/day x 20 years Stop/Bang Treated for Sleep Apnea?: No Do You Have a CPAP Machine?: No S-Snoring: Do You Snore Loudly: Yes T-Tired: feel tired, fatigued: Yes O-Obsered: Observed not breath: No P-Blood Pressure: treated: No B- Body Mass Index > 35 kg/m2: No A- Age over 50: Yes N- Neck Large Circumference: No G- Gender Male: Yes URBANO Total Score: 4 Risk Assessment Category Category 1A: Patient has history of documented sleep apnea, and HAS NOT received any narcotic, sedative or anesthesia administration during this stay. Category 1B: Patient has history of documented sleep apnea, and HAS received any narcotic , sedative or anesthesia administration during this stay Category 2: Patient has SUSPECTED Obstructive Sleep Apnea, and HAS received any narcotic , sedative or anesthesia administration during this stay. Category 3: Patient has SUSPECTED Obstructive Sleep Apnea and HAS NOT received narcotic, sedative or anesthesia administration during this stay. Category 4: Outpatient in Procedural Areas with known sleep apnea or who screen positive for High Risk via the STOP/BANG questionnaire. Exam Exam Vital Signs Vital Signs Date Time Temp Pulse Resp B/P Pulse Ox O2 Delivery O2 Flow Rate FiO2 04/24/16 07:41 36.9 61 16 113/51 97 Room Air 04/24/16 02:35 36.9 62 16 126/69 96 Room Air General Appearance: Alert, Oriented X3, Cooperative, No Acute Distress HEENT/AIRWAY: MP 2 Lungs: Clear to Auscultation Heart: Exam Unremarkable Meds/Labs/Diagnostics Admission Meds Current Medications Atenolol (Tenormin) 25 mg DAILY PO Last administered on 04/24/16 07:44; Start 04/23/16 at 08:30 Losartan Potassium 50 mg 50 mg DAILY PO Last administered on 04/24/16 07:44; Start 04/23/16 at 08:30 Magnesium Sulfate 2 gm/Premix 50 ml @ 50 mls/hr ONCE ONCE IV Last administered on 04/23/16 10:50; Start 04/23/16 at 10:30; Stop 04/23/16 at 11:29; Status DC Lactated Ringer's (Lr) 1,000 ml @ ud STK-MED ONCE IV Last administered on 11:15; Start 04/23/16 at 10:51; Stop 04/23/16 at 10:52; Status DC Polyethylene Glycol/ Electrolytes 4000 ml 4,000 ml ONCE ONCE PO Last administered on 04/23/16 16:00; Start 04/23/16 at 16:00; Stop 04/23/16 at 16:01; Status DC Sodium Chloride (Normal Saline) 250 ml @ 10 mls/hr Q24H IV Last administered on 04/23/16 18:25; Start 04/23/16 at 16:25 Bedside Blood Glucose: 89 Labs Test 04/22/16 11:30 04/22/16 17:41 04/23/16 09:00 04/23/16 14:20 Troponin T < 0.010ug/L (0.0-0.011) Pro-B-Type Natriuretic Peptide 7222pg/mL (0-376) Alcohol, Quantitative < 10mg/dL (0-10) Urine Color Yellow (YELLOW) Urine Appearance Clear (CLEAR,HAZY) Urine pH 5.5 (5.0-8.0) Urine Specific Burton 1.020 (1.003-1.035) Urine Protein Negativemg/dL (NEG,TRACE) Urine Glucose (UA) Negativemg/dL (NEGATIVE) Urine Ketones Negativemg/dL (NEGATIVE) Urine Occult Blood Negative (NEGATIVE) Urine Nitrite Negative (NEGATIVE) Urine Bilirubin Negative (NEGATIVE) Urine Urobilinogen Normalmg/dL (NORMAL) Urine Leukocyte Esterase Negative (NEGATIVE) Urine RBC 0-2/hpf (0-2) Urine WBC 0-5/hpf (0-5) Urine Epithelial Cells Occasional/hpf (NONE-MOD) Urine Crystals None seen (NONE SEEN) Urine Bacteria None/hpf (NONE-FEW) Urine Hyaline Casts None/lpf (NONE) Urine Granular Casts None seen (NONE SEEN) Urine Waxy Casts None seen (NONE SEEN) Urine Red Blood Cell Casts None seen (NONE SEEN) Urine White Blood Cell Casts None seen (NONE SEEN) Urine Mucus None seen (None Seen) Urine Trichomonas None seen (NONE SEEN) Urine Yeast None (NONE SEEN) Urinalysis Comment None Urine Culture Reflexed Not indicated White Blood Count 8.7th/mm3 (3.8-10.1) Red Blood Count 2.53mil/mm3 (4.40-5.80) Mean Corpuscular Volume 92.5fL (81-100) Mean Corpuscular Hemoglobin 30.4pg (27.0-35.0) Mean Corpuscular Hemoglobin Concent 32.9% (32.0-37.0) Red Cell Distribution Width 17.8% (12.3-15.4) Platelet Count 45bil/L (150-400) Neutrophils (%) (Auto) 72.0% (40-74) Lymphocytes (%) (Auto) 17.4% (14-46) Monocytes (%) (Auto) 9.4% (4-12) Eosinophils (%) (Auto) 0.6% (0-5) Basophils (%) (Auto) 0.1% (0-3) Sodium Level 137mEq/L (134-144) Potassium Level 4.2mEq/L (3.5-5.2) Chloride Level 100mEq/L (97-108) Carbon Dioxide Level 23mmol/L (18-29) Blood Urea Nitrogen 25mg/dL (8-27) Creatinine 0.93mg/dL (0.76-1.27) Estimat Glomerular Filtration Rate 86mL/min (>59) Glucose Level 80mg/dL (60-99) Lactic Acid Level 1.1mmol/L (0.4-2.0) Calcium Level 7.0mg/dL (8.5-10.1) Phosphorus Level 3.4mg/dL (2.5-4.9) Total Bilirubin 2.6mg/dL (0.0-1.2) Aspartate Amino Transf (AST/SGOT) 255U/L (0-50) Alanine Aminotransferase (ALT/SGPT) 123U/L (0-44) Alkaline Phosphatase 50U/L (25-160) Total Protein 5.9g/dL (6.4-8.4) Albumin 3.0g/dL (3.4-5.0) Thyroid Stimulating Hormone (TSH) 2.850uIU/mL (0.450-4.500) Free Thyroxine 0.99ng/dL (0.82-1.77) Hemoglobin 7.1g/dL (13.8-17.2) Test 04/23/16 18:18 04/24/16 03:03 Magnesium Level 1.6mg/dL (1.6-2.6) Hematocrit 28.2% (41.0-50.0) Prothrombin Time 13.9sec (8.1-12.5) Prothromb Time International Ratio 1.29ratio Plan Impression Patient chart reviewed, patient interviewed and anesthestic plan with risks, benefits, and alternatives discussed, and informed consent obtained. ASA Physical Status: ASA3 Severe Disease (CAD) Anesthetic Plan: MAC Bene/Risks/Altern/Consents: Yes HP Complete Prior to Induction: Yes Meng Gallo MD Apr 24, 2016 08:29
--- NOTE | 2016-04-24 13:15 | NUR ---
Retur to unit Patient returned to floor from colonoscopy, tolerated procedure well. VSS. Diet advance to clear liquids and will advance as tolerated.
--- NOTE | 2016-04-24 13:33 | PCM.ANEP2 ---
Post Anesthesia Evaluation ASA/CMS Post Anesthesia VS in Patient's Normal Range?: Yes Resp Stable; Airway Patent?: Yes CV Function & Hydration Stable: Yes Mental Status Recovered?: Yes Pain control Satisfactory?: Yes N/V Control Satisfactory?: Yes Meng Gallo MD Apr 24, 2016 13:33
[2016-04-24] MEDS ORDERED: Lactated Ringer's 1,000 ML IV ONE (13:51)
[2016-04-24] MEDS: 0.9% Sodium Chloride 250 ML IV SCH ×2 (16:25→22:47)
--- NOTE | 2016-04-24 17:05 | PCM.PNMED ---
Subjective Date of Service Apr 24, 2016 Subjective He is doing well. Colonoscopy today was unrevealing except that he has diverticuli. No evidence of active bleeding. He denies abdominal pain. Ultrasound indicates a large liver, no cirrhosis. He has elevated liver functions. Hepatitis panel is ordered. He does have a long history of alcohol abuse at the least drinking at least 3 drinks a day, usually vodka-based. Exam Vital Signs Vital Sign - Last Date Time Temp Pulse Resp B/P Pulse Ox O2 Delivery O2 Flow Rate FiO2 04/24/16 16:48 36.8 64 18 154/76 98 04/24/16 13:20 Room Air Intake and Output 04/23/16 04/23/16 04/24/16 Cumulative From/Thru 15:00 23:00 07:00 04/22/16 09:55 - 04/24/16 05:51 Intake Total 1331 ml 3136 ml 4753 ml 99791 ml Output Total 350 ml 1125 ml 2025 ml Balance 1331 ml 2786 ml 3628 ml 9212 ml Intake Oral 640 ml 4000 ml 4840 ml IV Total 300 ml 1894 ml 753 ml 4087 ml Packed Cells 611 ml 602 ml 1890 ml Platelets 420 ml 420 ml Output Urine Total 350 ml 825 ml 1725 ml Stool Total 300 ml 300 ml # Voids 1 # Bowel Movements 10 13 Exam Alert oriented 3, fluent speech. Anicteric sclerae, normal scalp Lungs are clear, normal effort Heart is regular without murmur. Abdomen soft nondistended and nontender. Exams are free of edema. Good radial and pedal pulses. Patient does have some proximal leg weakness when getting out of a chair. He can do it unassisted however. His gait is somewhat wobbly. IVs and Medications Medications Reviewed: Medications were reviewed in detail Lab and Diagnostics Result Diagram: 04/24/16 1209 04/23/16 0900 Additional Diagnostics Ultrasound reveals a large somewhat inflamed appearing liver, no evidence of gross ascites or cirrhosis. Assessment & Plan 1. Acute rectal bleeding. POA. Resolved. The patient has normal EGD and colonoscopy except for diverticuli. This could possibly be a resolved diverticular bleed. The patient did have a significant drop in hematocrit. We will consider a CT to rule out retroperitoneal hemorrhage tomorrow morning and watch the hematocrit overnight. #2. Acute blood loss anemia. POA. Patient is status post 2 units of packed red blood cells. We will continue watch him with serial hematocrits #3. Coumadin coagulopathy. POA. Patient was reversed with one of FFP and vitamin K. Bleeding appears to have clinically stopped. We will follow his pro time. Hold Coumadin for now. It seems that the patient will have to be off her Coumadin for at least a couple of weeks. Depending his gait stability and ongoing alcohol use versus cessation he may not be a good candidate for Coumadin in the future. 4. Syncopal episode. Prior to admission. Likely related to acute blood loss anemia. Follow clinically on telemetry. 5. Progressive bilateral leg weakness. POA. Suspect this may be related to a subacute anemia. We will follow this clinically and see if patient improves with physical therapy evaluation and maintenance of hematocrit. Plan is as above. Clinically stable. 6. CAD with history of PCI. POA. Clinically stable. Patient is off antiplatelets until his colonoscopy is performed. We will follow clinically. 7. DM 2. POA. Will follow with correctional lispro low-dose Lantus at bedtime. 8. Remote CVA. POA. Follow clinically. 9. Hypomagnesemia. Will replete with 2 g IV and follow clinically. Follow Discharge one gait stable and no evidence of active bleeding and a stable hematocrit. Pain Evaluation: Adequate Pain Control GI Prophylaxis: Proton Pump Inhibitor VTE Prophylaxis: SCDs VTE Mechanical Devices: Intermittant Pneumatic CD Resuscitation Status: CPR: Attempt Resuscitation Time spent 30 minutes Beto Guadarrama MD Apr 24, 2016 17:05
--- NOTE | 2016-04-24 18:06 | DRSVH ---
[facility] [address] [place] [address] Echocardiogram Report Name: TERESA MONSALVE te: 04/24/2016 [place] t: 69 in Hospital Exam Location: [facility] Weigh t: 176 lb Gender: Male BSA: 2.0 m2 : 1950 Age: 65 yrs BP: 1 13/51 mmHg Reason For Study: SYNCOPE, HYPOTENSION, BRADYCARDIA, LOC Ordering Physician: [facility] Performed By: Jossy Ashley Referring Physician: DR. Nagi DEMARCO, DR. Tiffanie GREEN Interpretation Summary The left ventricle is normal in size. The ejection fraction is estimated to be 50-55%. There is severe hypokinesis to akinesis of the mid and distal anterior septum, anterior wall and apex c/w ischemia or infarct in the LAD distribution. Assessment of diastolic parameters suggests a pseudonormalization pattern, consistent with elevated filling pressures. The IVC is of normal diameter and collapses greater than 50% with a sniff. This suggests a low right atrial pressure of 3 mm Hg. No other echocardiographic abnormalities seen. Compared to the prior echo report on 06/10/2013, there is no significant change. Procedure: A two-dimensional transthoracic echocardiogram with color flow and Doppler was performed. The apical views were difficult to obtain and are suboptimal in quality. The suprasternal notch views were difficult to obtain and are suboptimal in quality. The subcostal views were difficult to obtain and are suboptimal in quality. A contrast injection of Definity was performed to improve assessment of LV function. Contrast was injected into an intravenous site in the right arm. A total of 6 cc of contrast was given. The patient was in normal sinus rhythm during the exam. The patient did well with the Definity Contrast. Left Ventricle: Left ventricular wall thickness is mildly increased. The left ventricle is normal in size. The ejection fraction is estimated to be 50 -55%. There is severe hypokinesis to akinesis of the mid and distal anterior septum, anterior wall and apex c/w ischemia or infarct in the LAD distribution. Spectral Doppler of the mitral valve shows a normal E/A wave ratio. Assessment of diastolic parameters suggests a pseudonormalization pattern, consistent with elevated filling pressures. Right Ventricle: The right ventricle grossly appears normal in size with probable normal systolic function. Atria: Both atria are mildly dilated. There is no Doppler evidence for an atrial septal defect. Mitral Valve: The mitral valve leaflets appear mildly thickened, but open well. There is mild mitral regurgitation. Aortic Valve: The aortic valve is trileaflet. The aortic valve opens well. No aortic regurgitation is present. Tricuspid Valve: The tricuspid valve leaflets are thin and pliable. There is a trace or physiologic amount of tricuspid regurgitation. Pulmonary artery pressures cannot be estimated because of the lack of a measurable TR jet velocity. Pulmonic Valve: The pulmonic valve is normal in structure and function. Great Vessels: The aortic root is mildly dilated. The dimensions of the ascending aorta are normal. The pulmonary artery is normal size. The IVC is of normal diameter and collapses greater than 50% with a sniff. This suggests a low right atrial pressure of 3 mm Hg. Pericardium/ Pleura There is no pericardial effusion. There is no pleural effusion. MMode/2D Measurements & Calculations LVIDd: 5.6 cm LA dimension: 4.3 cm RA long axis LVOT diam LVIDs: 3.6 cm FS: 35.2 % LA A2 area: 25.9 cm RA area Ao root diam EPSS: 0.48 cm LA A4 area: 20.7 cm IVSd: 0.97 cm LA length (vol): 5.5 cm : 21.1 cm asc Aorta LVPWd: 1.2 cm LA vol: 82.9 ml RA vol: 60.9 mlDiam: 3.4 cm LA vol index RA : 30.8 mm2 : 42.0 ml/m2 LV nuñez. diameter/BSA LV sys. diameter/BSA (cm/m^2): 2.8 (cm/m^2): 1.8 Doppler Measurements & Calculations Ao V2 max MV E max edd MV E/A: 1.4 PA V2 max : 142.8 cm/sec : 108.6 cm/sec Med Peak E' Edd : 102.6 cm/sec Ao max PG MV A max edd PA mean PG : 8.2 mmHg : 76.9 cm/sec E/E' med: 12.2 : 2.4 mmHg Ao mean PG MV P1/2t: 61.5 msec Lat Peak E' Edd LVOT Max Edd E/E' lat: 14.0 : 113.7 cm/sec Pulm A Revs Dur CLARENCE(I,D): 2.9 cm MV A dur: 0.11 sec sev ratio MV dec time MV P1/2t max edd Ao V2 mean LV V1 max PG : 0.21 sec : 100.7 cm/sec MVA(P1/2t): 3.6 cm2 Ao V2 VTI: 32.4 cm LV V1 VTI CLARENCE(V,D): 3.3 cm2 : 22.5 cm PA V2 mean CLARENCE indexed to BSA Pulm A Revs Dur - MV : 74.4 cm/sec (cm^2/m^2): 1.5 A Dur: 0.02 msec Reading Physician:06:06 PM
--- NOTE | 2016-04-24 21:13 | ENDO ---
[address] [address] ENDOSCOPY PROCEDURE PATIENT: TERESA MONSALVE : 1950 MR#: [id number] ADMIT: 04/22/2016 JOB ID: [id number] OPERATION: Colonoscopy. PREOPERATIVE DIAGNOSIS: Melena. POSTOPERATIVE DIAGNOSES: Sigmoid diverticulosis, internal and external hemorrhoids. ANESTHESIA: Monitored anesthesia care. COMPLICATIONS: None. BLOOD LOSS: Minimal. DESCRIPTION OF PROCEDURE: After risks and benefits explained to the patient, informed consent was obtained. After anesthesia administered, colonoscope was inserted per the rectum to the terminal ileum. Mucosa was carefully examined. Prep of the patient was fair to suboptimal. After the procedure was done, the scope withdrawn and the procedure terminated. FINDINGS: Upon inspection of the anus, no masses but there were external hemorrhoids that were seen, small. Throughout the entire examination, there were no polyps, masses, or lesions. There was mild sigmoid diverticulosis. Retroflexion showed small internal hemorrhoids. IMPRESSIONS: 1. Small internal external hemorrhoids. 2. Mild sigmoid diverticulosis. RECOMMENDATION: 1. High-fiber diet. 2. Okay to start clear liquid diet. 3. Okay to be discharged home today from a GI standpoint.
[2016-04-25] VITALS (9 sets, daily range): BP systolic 145–167; BP diastolic 79–104; PULSE 63–120; RESP 17–21; O2SAT 95–98
[2016-04-25] MEDS: 0.9% Sodium Chloride 1,000 ML IV SCH ×3 (01:03→23:59)
[2016-04-25 04:07] LABS: Hepatitis A Antibody IgM Negative (Negative); Hepatitis B Core Antibody IgM Negative (Negative)
[2016-04-25 04:26] LABS: Magnesium 1.1 mg/dL (1.6-2.6)
--- NOTE | 2016-04-25 05:01 | NUR ---
Critical results of calcium 6.6 and mag 1.[address] Moody. New orders given to replace mag but no orders given to replace calcium at this time.
[2016-04-25] MEDS ORDERED: Magnesium Sulf 2 Gm/50mL Water 2 GM in IV Premix 1 EACH IV ONE (05:10)
[2016-04-25 05:36] LABS: INR 1.15 ratio
[2016-04-25] MEDS ORDERED: Calcium GLUCO 10% (mEq) Inj 13.95 MEQ in Dextrose 5% 100 ML IV ONE (07:40)
[2016-04-25 07:54] LABS: Mean Corpuscular Hemoglobin 30.6 pg (27.0-35.0); Mean Corpuscular Volume 92.4 fL (81-100)
--- NOTE | 2016-04-25 08:46 | PCM.PNSURG ---
Subjective Date of Service: Apr 25, 2016 Date of Service: Apr 25, 2016 Subjective: hb 9.2 this am. no overt signs gi bleed. s/p colon yesterday. transaminases rising this am. hep a,b,c serologies neg. CT abdomen pelvis pending Postop General: No Complaints Objective Vital Sign- Last 8 Hours Date Time Temp Pulse Resp B/P Pulse Ox O2 Delivery O2 Flow Rate FiO2 04/25/16 08:05 36.1 66 20 150/88 98 Room Air 04/25/16 04:34 37.1 70 18 167/79 95 Room Air Intake and Output- Last 8 Hour 04/25/16 Cumulative From/Thru 07:00 04/22/16 09:55 - 04/25/16 06:53 Intake Total 700 ml 21341 ml Output Total 625 ml 2850 ml Balance 75 ml 9987 ml Intake Oral 700 ml 6340 ml IV Total 4187 ml Packed Cells 1890 ml Platelets 420 ml Output Urine Total 625 ml 2550 ml Stool Total 300 ml # Voids 1 # Bowel Movements 13 General: Oriented X3 Neck: Supple Lungs: Clear to Auscultation Heart: Exam Unremarkable Abdomen: Benign, Soft, Non-tender, Non-distended, Normoactive bowel tones Extremities: Distal Pulses Palpable Result Diagram: 04/25/16 0510 04/25/16 0300 Assessment & Plan Impression 65-year-old, male with a history of alcohol abuse in which he drinks at least two glasses of wine per day since age of 20, daily marijuana use, coronary artery disease status post right coronary artery stent, atrial fibrillation on Coumadin, stroke in 2007, hypertension, diabetes type 2 with a family history of colon cancer mother diagnosed at age of 50 presents here with anemia, melena and transaminitis. The patient's transaminitis is most likely due to acute alcoholic hepatitis given the fact the AST/ALT ratio is greater than 2:1. Hepatitis a,b,c serologies neg. s/p egd 04/22/16- IMPRESSIONS: Normal upper endoscopy. RECOMMENDATIONS: 1. Stop Protonix drip. 2. Start clear liquid diet. 3. Alcohol cessation. 4. Golteytl prep tonight for colonoscopy tomorrow s/p colon 04/24/16- IMPRESSIONS: 1. Small internal external hemorrhoids. 2. Mild sigmoid diverticulosis. RECOMMENDATION: 1. High-fiber diet. 2. Okay to start clear liquid diet. 3. Okay to be discharged home today from a GI standpoint. abdominal u/s 04/24/16- IMPRESSION: 1. Trace amount of perihepatic ascites. 2. Suboptimal dilation of the gallbladder secondary to poor distention. No definite cholecystitis. Recs: 1. Alcohol cessation. 2. high fiber diet 3. await CT abdomen pelvis contrast Problems: VTE Prophylaxis: SCDs Resuscitation Status: CPR: Attempt Resuscitation Sean Mock MD Apr 25, 2016 08:46
--- NOTE | 2016-04-25 09:12 | NUR ---
Off Unit Patient off unit to CT
--- NOTE | 2016-04-25 10:15 | DRSVH ---
PROCEDURE: CT ABDOMEN AND PELVIS WITH CONTRAST ([id number]) INDICATIONS: anemia TECHNIQUE: After the administration of oral and intravenous contrast, 5 mm thick sections acquired from the diap hragms to the symphysis. 5 mm thick coronal and sagittal reformats were performed. For radiation do se reduction, the following was used: automated exposure control, adjustment of mA and/or kV accordi ng to patient size. COMPARISON: [facility], US, US ABDOMEN, 04/24/2016, 8:57. FINDINGS: Image quality: Excellent. ABDOMEN: Lung bases: There scattered areas of groundglass like opacity within the visualized right middle lobe , the largest focus measuring approximately 24 mm. Minimal lateral pleural effusions with small super imposed consolidations are present bilaterally. Solid organs: Liver is mildly enlarged with fatty infiltration. The spleen is normal in size and enh ancement. Gallbladder is distended. While there is no gross wall thickening, pericholecystic fluid i s present. No visualized stones. Biliary system is non-dilated. Pancreas enhances normally. No adr enal nodules. Kidneys are normal in size and enhancement, without hydronephrosis. Peritoneum and bowel: Stomach, small bowel, and colon loops are normal in caliber and wall thickness . There is trace perihepatic and perisplenic fluid. There is minimal fluid within the paracolic gutte rs bilaterally, left greater than right as well as minimal to mild scattered dependent fluid in the p yash. Nodes and vessels: No retroperitoneal or mesenteric adenopathy. Aorta and inferior vena cava are no rmal in caliber. Miscellaneous: No ventral hernias. PELVIS: Genitourinary: Bladder wall thickness is normal. Miscellaneous: No inguinal hernias or adenopathy. There is an edematous appearance of the musculatu re surrounding the lateral and posterior right hip and gluteus musculature. There are portions within the edematous musculature demonstrating increased Hounsfield units in the range of 45-50 suggestive of blood products. While the hip demonstrates prominent degenerative change. No definitive fracture i s identified. Bones: No suspicious bony lesions. No vertebral body compression fractures. IMPRESSION: 1. Scattered groundglass opacities within the right middle lobe as above. These are suspicious for in fection or inflammation. No priors are available for comparison and recommend interval follow up as b elow. 2. Minimal to mild scattered areas of free fluid within the abdomen and pelvis as above. Hounsfield u nits are indicative of simple fluid rather than hemorrhagic fluid. 3. Asymmetric edematous appearance of the musculature surrounding the right hip and gluteal region wi th areas of hyperdensity. Overall appearance is most suggestive of intramuscular hemorrhage with john inés. The largest defined focus of hyperdensity measures approximately 47 mm on series 2 image 88. The above findings were discussed with Dr. Rufino Guadarrama on 04/25/16 at 10:10 AM. Dictated by: Rosa Baxter M.D. on 04/25/2016 at 10:13 Approved by: Rosa Baxter M.D. on 04/25/2016 at 10:13
--- NOTE | 2016-04-25 11:30 | PCM.PNMED ---
Subjective Date of Service Apr 25, 2016 Subjective Left hip pain, some gait instability. No chest pain or dyspnea. No abdominal pain or nausea. No diarrhea. Exam Vital Signs Vital Sign - Last Date Time Temp Pulse Resp B/P Pulse Ox O2 Delivery O2 Flow Rate FiO2 04/25/16 10:24 64 04/25/16 08:05 36.1 20 150/88 98 Room Air Intake and Output 04/24/16 04/24/16 04/25/16 Cumulative From/Thru 15:00 23:00 07:00 04/22/16 09:55 - 04/25/16 06:53 Intake Total 100 ml 800 ml 700 ml 63260 ml Output Total 200 ml 625 ml 2850 ml Balance 100 ml 600 ml 75 ml 9987 ml Intake Oral 800 ml 700 ml 6340 ml IV Total 100 ml 4187 ml Packed Cells 1890 ml Platelets 420 ml Output Urine Total 200 ml 625 ml 2550 ml Stool Total 300 ml # Voids 1 # Bowel Movements 13 Exam Alert oriented 3, fluent speech. Anicteric sclerae Lungs are clear, normal effort Heart is regular, no murmur Abdomen is soft. Extremities are free of edema. Good pedal pulses Multiple bruising on the back and left hip. Lab and Diagnostics Result Diagram: 04/25/16 0510 04/25/16 0300 Additional Diagnostics Ultrasound reveals a large somewhat inflamed appearing liver, no evidence of gross ascites or cirrhosis. Assessment & Plan 1. Acute rectal bleeding. POA. Resolved. The patient has normal EGD and colonoscopy except for diverticuli. This could possibly be a resolved diverticular bleed. The patient did have a significant drop in hematocrit. We will consider a CT to rule out retroperitoneal hemorrhage tomorrow morning and watch the hematocrit overnight. 2. Probable left hip hematoma from fall contributing to acute blood loss anemia , by mouth 8. CT scan of the abdomen indicated this is a finding today. No retroperitoneal hematoma. He does have mildly enlarged liver worsen. There is some fluid in the right upper quadrant. There are no stones or gallbladder wall thickening. #2. Acute blood loss anemia. POA. Patient is status post 2 units of packed red blood cells. We will continue watch him with serial hematocrits. His hematocrit had drifted down to 27 from 29. He did have a coagulopathy. We will give another 24 hours given his significant acute blood loss anemia with initial hematocrit of 16. There is no evidence of ongoing rectal bleeding. He may have also had a diverticular bleed, this is unknown. #3. Coumadin coagulopathy. POA. Patient was reversed with one of FFP and vitamin K. Bleeding appears to have clinically stopped. We will follow his pro time. Hold Coumadin for now. It seems that the patient will have to be off her Coumadin for at least a couple of weeks. Depending his gait stability and ongoing alcohol use versus cessation he may not be a good candidate for Coumadin in the future. 4. Syncopal episode. Prior to admission. Likely related to acute blood loss anemia. Follow clinically on telemetry. This likely was a function of his mild anemia and gait stability. 5. Progressive bilateral leg weakness. POA. Suspect this may be related to a subacute anemia. We will follow this clinically and see if patient improves with physical therapy evaluation and maintenance of hematocrit. Plan is as above. Clinically stable. I believe that years gait stability is multifactorial but related to chronic alcohol abuse and was exacerbated by his acute anemia. 6. CAD with history of PCI. POA. Clinically stable. Patient is off antiplatelets until his colonoscopy is performed. We will follow clinically. We will resume aspirin and atorvastatin today. 7. DM 2. POA. Will follow with correctional lispro low-dose Lantus at bedtime. Resume metformin [address] scan which would be 2 days from now. 8. Remote CVA. POA. Follow clinically. 9. Hypomagnesemia. Will replete with 2 g IV and follow clinically. Follow Discharge one gait stable and no evidence of active bleeding and a stable hematocrit. Pain Evaluation: Adequate Pain Control GI Prophylaxis: Proton Pump Inhibitor VTE Prophylaxis: SCDs VTE Mechanical Devices: Intermittant Pneumatic CD Resuscitation Status: CPR: Attempt Resuscitation Time spent 30 minutes Beto Guadarrama MD Apr 25, 2016 11:30
[2016-04-25] MEDS: 0.9% Sodium Chloride 250 ML IV SCH ×2 (16:25→20:30)
--- NOTE | 2016-04-25 17:46 | NUR ---
Fever Patient had elevated temperature this afternoon of 100.4 degrees Fahrenheit. MD notified and PO Tylenol ordered and given. Most recent temperature was 98.4 degrees. Patient denies any pain/discomfort as well as any s/sx of illness. States he feels great. All other VSS.
--- NOTE | 2016-04-25 18:23 | NUR ---
IV site IV DC'd out of R AC yesterday due to patient discomfort. IV site and area around is red, hard and warm to touch. Patient denies pain/discomfort at site. aware.
--- NOTE | 2016-04-25 18:43 | NUR ---
Telemetry Update: Afib Patient has been Sinus Rhythm 60-80s with PVC pairs. At 18:43 patient converted to Afib in the 130-140s and had a 5 beat run of VTACH. AUTUMN hernandez.
--- NOTE | 2016-04-26 01:05 | NUR ---
A Fib/ old IV site: Per shift report pt converted to Afib 140s- 150s @ 1800. RN notified who placed order for 12.5 PO metoprolol. Med given as ordered- HR continued to be 1teans to 140s. Dr. Moody made aware- at bedside to assess pt/ Tele. 1x dose of PO Dilt given per order with good effect. Tele remains Afib 80-90s. Pt has hx of Paroxysmal afib. also assessed pt old IV site in Right AC. states to put bacitracin and bandage on scabbed over part.
[2016-04-26 03:53] LABS: INR 1.13 ratio
[2016-04-26 04:12] VITALS: BP 138/90; PULSE 102; RESP 18; O2SAT 94
[2016-04-26 04:13] LABS: Magnesium 1.3 mg/dL (1.6-2.6)
--- NOTE | 2016-04-26 04:21 | NUR ---
K/ Mag Stat K and Mag ordered this am per tele protocol. mag 1.3, k 3.4. Dr. Fransisco alonzo with findings. Addendum: 04/26/16 at 0449 by DALILA DODGE RN 2bm IV mag and 80 MEQ K ordered. Meds given with food.
[2016-04-26] MEDS ORDERED: Magnesium Sulf 2 Gm/50mL Water 2 GM in IV Premix 1 EACH IV ONE (04:30)
[2016-04-26] MEDS ORDERED: Potassium Chloride 20 mEq SR Tablet PO ONE (04:35)
[2016-04-26 05:55] VITALS: PULSE 127
[2016-04-26 08:00] VITALS: PULSE 101
[2016-04-26 08:03] VITALS: BP 142/94; PULSE 126; RESP 16; O2SAT 95
[2016-04-26] MEDS: 0.9% Sodium Chloride 1,000 ML IV SCH (08:33)
--- NOTE | 2016-04-26 08:55 | PCM.PNSURG ---
Subjective Date of Service: Apr 26, 2016 Date of Service: Apr 26, 2016 Subjective: no acute events overnight. no overt signs gi bleed. Postop General: No Complaints Objective Vital Sign- Last 8 Hours Date Time Temp Pulse Resp B/P Pulse Ox O2 Delivery O2 Flow Rate FiO2 04/26/16 08:03 36.8 126 16 142/94 95 Room Air 04/26/16 05:55 127 04/26/16 04:12 36.7 102 18 138/90 94 Room Air Intake and Output- Last 8 Hour 04/26/16 Cumulative From/Thru 06:59 04/22/16 09:55 - 04/26/16 06:12 Intake Total 2079 ml 54358 ml Output Total 1600 ml 4450 ml Balance 479 ml 58764 ml Intake Oral 800 ml 7140 ml IV Total 1279 ml 7506 ml Packed Cells 1890 ml Platelets 420 ml Output Urine Total 1600 ml 4150 ml Stool Total 300 ml # Voids 1 # Bowel Movements 13 General: Oriented X3 Neck: Supple Lungs: Clear to Auscultation Heart: Exam Unremarkable Abdomen: Benign, Soft, Non-tender, Non-distended, Normoactive bowel tones Extremities: Distal Pulses Palpable Result Diagram: 04/25/16 0510 04/26/16 0320 Assessment & Plan Impression 65-year-old, male with a history of alcohol abuse in which he drinks at least two glasses of wine per day since age of 20, daily marijuana use, coronary artery disease status post right coronary artery stent, atrial fibrillation on Coumadin, stroke in 2007, hypertension, diabetes type 2 with a family history of colon cancer mother diagnosed at age of 50 presents here with anemia, melena and transaminitis. The patient's transaminitis is most likely due to acute alcoholic hepatitis given the fact the AST/ALT ratio is greater than 2:1. Hepatitis a,b,c serologies neg. s/p egd 04/22/16- IMPRESSIONS: Normal upper endoscopy. RECOMMENDATIONS: 1. Stop Protonix drip. 2. Start clear liquid diet. 3. Alcohol cessation. 4. Golteytl prep tonight for colonoscopy tomorrow s/p colon 04/24/16- IMPRESSIONS: 1. Small internal external hemorrhoids. 2. Mild sigmoid diverticulosis. RECOMMENDATION: 1. High-fiber diet. 2. Okay to start clear liquid diet. 3. Okay to be discharged home today from a GI standpoint. abdominal u/s 04/24/16- IMPRESSION: 1. Trace amount of perihepatic ascites. 2. Suboptimal dilation of the gallbladder secondary to poor distention. No definite cholecystitis. ct abdomen pelvis with contrast 04/25/16- IMPRESSION: 1. Scattered groundglass opacities within the right middle lobe as above. These are suspicious for infection or inflammation. No priors are available for comparison and recommend interval follow up as below. 2. Minimal to mild scattered areas of free fluid within the abdomen and pelvis as above. Hounsfield units are indicative of simple fluid rather than hemorrhagic fluid. 3. Asymmetric edematous appearance of the musculature surrounding the right hip and gluteal region with areas of hyperdensity. Overall appearance is most suggestive of intramuscular hemorrhage with hematoma. The largest defined focus of hyperdensity measures approximately 47 mm on series 2 image 88. Recs: 1. Alcohol cessation. 2. high fiber diet 3. tap water enemas if constipation. Problems: VTE Prophylaxis: SCDs Resuscitation Status: CPR: Attempt Resuscitation Sean Mock MD Apr 26, 2016 08:54
[2016-04-26 10:02] LABS: Magnesium 1.6 mg/dL (1.6-2.6)
--- NOTE | 2016-04-26 10:45 | NUR ---
CYNTHIA Signed Verbal Consent due to Precautions
[2016-04-26 11:12] LABS: Mean Corpuscular Hemoglobin 30.4 pg (27.0-35.0); Mean Corpuscular Volume 93.7 fL (81-100)
[2016-04-26 11:43] VITALS: BP 147/92; PULSE 74; RESP 16; O2SAT 97
--- NOTE | 2016-04-26 12:56 | PCM.DIMED ---
Discharge Instructions Date of Service Apr 26, 2016 Dates of Hospitalization Apr 22, 2016 at 11:34 Discharge Diagnosis Discharge Diagnosis 1. Ground level fall 2. Left hip hematoma 3. Acute blood loss anemia, improved 4. Possible minor rectal bleed. 5. Coumadin induced coagulopathy, improved 6. Paroxysmal atrial fibrillation with rapid ventricular response. Improved. 7. Gait instability, improving. 8. Alcohol induced hepatitis 9. Alcohol abuse 10. Remote history of stroke 11. Right arm superficial thrombophlebitis Diet Heart Healthy Activity Limited until seen by PCP Call your provider Fever or Chills, Shortness of breath, Bleeding Patient Instructions Would like to have you hold Coumadin for 2 weeks. Hold metformin for 2 days and resume on April 28. Would also like to have you for your atorvastatin for the next 2 weeks until we repeat your liver function tests. I doubt that this is contributing to her liver function test elevation but it could be partially responsible. Would like to have you see either Dr. Lazcano or your new primary care doctor in 2 weeks. That time would like to do a repeat CMP to check liver functions and electrolytes as well as a CBC to check your blood count. To improve your health you absolutely have to stay away from alcohol. Beto Guadarrama MD Apr 26, 2016 12:55
[2016-04-26] MEDS ORDERED: CEPH500C PO (12:58)
--- NOTE | 2016-04-26 13:44 | NUR ---
Discharge Patient converted back to sinus rhythm this morning around 1030. VSS. Patient denies pain/comfort. Paper rx and discharge instructions printed and reviewed verbally with patient and family. All questions answered. IV DC'd intact. Patient ambulated c FWW off unit with all personal belongings and transported home via personal vehicle.
--- NOTE | 2016-05-10 13:59 | PCM.DC.MED ---
Discharge Summary Date of Service Apr 26, 2016 Dates of Hospitalization Date of Hospital Admission Apr 22, 2016 at 11:34 Date of Discharge: Apr 26, 2016 Providers: Admitting Physician: Jaron Keane DO Primary Care Physician: Hosea Groves DO Attending Physician: Jaron Keane DO Diagnosis at Time of Discharge Diagnosis at Time of Discharge 1. Ground level fall 2. Left hip hematoma 3. Acute blood loss anemia, improved. Patient received 2 units of packed red blood cells. 4. Possible minor rectal bleed. 5. Coumadin induced coagulopathy, improved. Patient received 10 mg of vitamin K 1. 6. Paroxysmal atrial fibrillation with rapid ventricular response. Improved. 7. Gait instability, improving. 8. Alcohol induced hepatitis 9. Alcohol abuse 10. Remote history of stroke 11. Right arm superficial thrombophlebitis Consultations Gastroenterology, Dr. Mock Procedures XRay, CTs & MRIs Chest x-ray normal, pelvic x-ray normal. Brain CT normal. Right upper quadrant ultrasound reveals a normal echogenicity liver. A CT of the abdomen is negative for retroperitoneal bleed, or ascites. No evidence of portal hypertension or splenomegaly. There is a substantial left- sided hip hematoma presumably from his fall. ECG 12 Lead Normal sinus rhythm, septal Q waves. The patient has nonspecific ST changes as well. Cardiac Echo Impression Left ventricular function is 50-55%. There is severe hypokinesis of the anterior wall consistent with a previous LAD distribution infarct. Invasive Procedures Endoscopy and colonoscopy were both unremarkable. No evidence of acute bleeding or other culprit lesions. He did have numerous diverticuli in the colon but again no evidence of recent bleeding. Patient was transfused with 2 units of packed red blood cells while in the hospital for a presumed acute blood loss anemia. Other Diagnostics Ultrasound reveals a large somewhat inflamed appearing liver, no evidence of gross ascites or cirrhosis. Brief History Mr. Juan Carlos Ricci is a pleasant 65 year old gentleman with history of CAD s/p RCA stent x2, atrial fibrillation on long-term anticoagulation, CVA in 2007, and HTN , that presented to [facility] with recurrent GLFs, reported possible rectal bleeding , and LOC while defecating. He was admitted for evaluation and treatment of supratherapeutic INR, recurrent GLFs, and suspected GI bleed. He states that he resides with his son, whom is also present at bedside. Today' s visit was prompted by recurrent GLFs, most recent the morning of admission. Reports multiple injuries incurred as result of recurrent falls. The son reports an instance of blood found soaked in the bedsheets, reported to be not a large amount, but enough to be visible. No other bleeding noted. The falls have been increasing over recent weeks, reports 20lb unintentional weight loss over recent year. According to Jeannie, colonoscopy was performed in 2008, review of PCP records indicate that FU was to be in 10 years. While he was using the bedside commode in the ED, he passed a bowel movement, lost consciousness, appeared pale, and had a bradycardic event. He resolved and recovered spontaneously without residual effects. Denied feeling dizzy at that time. Son reports that he has been having difficulty with positional transitions recently. Patient denies any associated dizziness, profound bleeding, acute vision changes , headache, chest pain, shortness of breath, abdominal pain Admits to increase number of falls, unintentional weight loss, weakness, unsteady gait In the ED: Afebrile, BP 111/86, P66; stat CXR, pelvis Xr did not reveal any acute fractures; INR found to be 9.18, Mg 1.0, LA 4.3; 10mg vit K x1 stat. No blood observed at rectum. Was last seen at [facility] 04/10, INR 2.8 with no changes to medications. Patient denies any recent changes to medications, denies any deviation from dosing recommendations. PCP: [facility] Patient was seen in ED, in stable condition. Awaiting open bed in [facility]. All questions and concerns were addressed. Hospital Course 1. Acute rectal bleeding. POA. Resolved. The patient has normal EGD and colonoscopy except for diverticuli. This could possibly be a resolved diverticular bleed. The patient did have a significant drop in hematocrit. We will consider a CT to rule out retroperitoneal hemorrhage tomorrow morning and watch the hematocrit overnight. 2. Probable left hip hematoma from fall contributing to acute blood loss anemia , by mouth 8. CT scan of the abdomen indicated this is a finding today. No retroperitoneal hematoma. He does have mildly enlarged liver worsen. There is some fluid in the right upper quadrant. There are no stones or gallbladder wall thickening. #2. Acute blood loss anemia. POA. Patient is status post 2 units of packed red blood cells. We will continue watch him with serial hematocrits. His hematocrit had drifted down to 27 from 29. He did have a coagulopathy. We will give another 24 hours given his significant acute blood loss anemia with initial hematocrit of 16. There is no evidence of ongoing rectal bleeding. He may have also had a diverticular bleed, this is unknown. #3. Coumadin coagulopathy. POA. Patient was reversed with one of FFP and vitamin K. Bleeding appears to have clinically stopped. We will follow his pro time. Hold Coumadin for now. It seems that the patient will have to be off her Coumadin for at least a couple of weeks. Depending his gait stability and ongoing alcohol use versus cessation he may not be a good candidate for Coumadin in the future. 4. Syncopal episode. Prior to admission. Likely related to acute blood loss anemia. Follow clinically on telemetry. This likely was a function of his mild anemia and gait stability. 5. Progressive bilateral leg weakness. POA. Suspect this may be related to a subacute anemia. We will follow this clinically and see if patient improves with physical therapy evaluation and maintenance of hematocrit. Plan is as above. Clinically stable. I believe that years gait stability is multifactorial but related to chronic alcohol abuse and was exacerbated by his acute anemia. 6. CAD with history of PCI. POA. Clinically stable. Patient is off antiplatelets until his colonoscopy is performed. We will follow clinically. We will resume aspirin and atorvastatin today. 7. DM 2. POA. Will follow with correctional lispro low-dose Lantus at bedtime. Resume metformin [address] scan which would be 2 days from now. 8. Remote CVA. POA. Follow clinically. 9. Hypomagnesemia. Will replete with 2 g IV and follow clinically. Follow Discharge one gait stable and no evidence of active bleeding and a stable hematocrit. The patient is admitted for syncope and acute rectal bleeding and context of a progressive bilateral leg weakness. Assessment context of a history of probable heavy alcohol abuse ongoing for years. The patient is found to have an acute blood loss anemia and Coumadin coagulopathy at the time of admission. He was transfused with 2 units of packed cells and started on a Protonix drip. The patient is placed in a CIWA protocol but had no evidence of alcohol withdrawal symptoms. He was also given vitamin K for his elevated pro time. He was monitored on telemetry had no further difficulties in improved with regards to his leg weakness after his transfusion. With regards to CAD he had no chest pain. He does have an abnormal ECG with septal Q waves and abnormal echo with a flat anterior aspect of the heart consistent with a probable previous LAD distribution infarct. The patient also had mild hypomagnesemia and this was repleted. The patient underwent endoscopy which was unremarkable and colonoscopy which was unremarkable with the exception of diverticuli. A CT scan left hip indicated a probable acute blood loss anemia secondary to a left hip soft tissue hematoma. Ultimately the patient improved to the point it was felt that he be stable for discharge home with a short-term hold on his Coumadin for perhaps 2 weeks. Patient is advised to use an assistive walking device either a cane or walker until follow-up. He is also advised to completely abstain from alcohol. Exam As noted. All vital signs within normal limits. He was afebrile. Exam Alert oriented 3, no distress. Fluent speech. Anicteric sclera. Neck supple. Lungs clear normal effort Heart regular without murmur gallop or rub Stent. Exams free of edema. Test 04/22/16 11:30 04/22/16 17:41 04/23/16 09:00 04/24/16 03:03 Troponin T < 0.010ug/L (0.0-0.011) Pro-B-Type Natriuretic Peptide 7222pg/mL (0-376) Alcohol, Quantitative < 10mg/dL (0-10) Urine Color Yellow (YELLOW) Urine Appearance Clear (CLEAR,HAZY) Urine pH 5.5 (5.0-8.0) Urine Specific [place] 1.020 (1.003-1.035) Urine Protein Negativemg/dL (NEG,TRACE) Urine Glucose (UA) Negativemg/dL (NEGATIVE) Urine Ketones Negativemg/dL (NEGATIVE) Urine Occult Blood Negative (NEGATIVE) Urine Nitrite Negative (NEGATIVE) Urine Bilirubin Negative (NEGATIVE) Urine Urobilinogen Normalmg/dL (NORMAL) Urine Leukocyte Esterase Negative (NEGATIVE) Urine RBC 0-2/hpf (0-2) Urine WBC 0-5/hpf (0-5) Urine Epithelial Cells Occasional/hpf (NONE-MOD) Urine Crystals None seen (NONE SEEN) Urine Bacteria None/hpf (NONE-FEW) Urine Hyaline Casts None/lpf (NONE) Urine Granular Casts None seen (NONE SEEN) Urine Waxy Casts None seen (NONE SEEN) Urine Red Blood Cell Casts None seen (NONE SEEN) Urine White Blood Cell Casts None seen (NONE SEEN) Urine Mucus None seen (None Seen) Urine Trichomonas None seen (NONE SEEN) Urine Yeast None (NONE SEEN) Urinalysis Comment None Urine Culture Reflexed Not indicated Neutrophils (%) (Auto) 72.0% (40-74) Lymphocytes (%) (Auto) 17.4% (14-46) Monocytes (%) (Auto) 9.4% (4-12) Eosinophils (%) (Auto) 0.6% (0-5) Basophils (%) (Auto) 0.1% (0-3) Lactic Acid Level 1.1mmol/L (0.4-2.0) Phosphorus Level 3.4mg/dL (2.5-4.9) Thyroid Stimulating Hormone (TSH) 2.850uIU/mL (0.450-4.500) Free Thyroxine 0.99ng/dL (0.82-1.77) Hepatitis A IgM Antibody Negative (Negative) Hepatitis B Surface Antigen Negative (Negative) Hepatitis B Core IgM Antibody Negative (Negative) Hepatitis C Antibody <0.1s/co ratio (0.0-0.9) Hepatitis C Comment Comment (.) Test 04/26/16 03:20 04/26/16 09:12 Prothrombin Time 12.1sec (8.1-12.5) Prothromb Time International Ratio 1.13ratio White Blood Count 7.8th/mm3 (3.8-10.1) Red Blood Count 3.16mil/mm3 (4.40-5.80) Hemoglobin 9.6g/dL (13.8-17.2) Hematocrit 29.6% (41.0-50.0) Mean Corpuscular Volume 93.7fL (81-100) Mean Corpuscular Hemoglobin 30.4pg (27.0-35.0) Mean Corpuscular Hemoglobin Concent 32.4% (32.0-37.0) Red Cell Distribution Width 18.8% (12.3-15.4) Platelet Count 78bil/L (150-400) Sodium Level 135mEq/L (134-144) Potassium Level 3.9mEq/L (3.5-5.2) Chloride Level 101mEq/L (97-108) Carbon Dioxide Level 21mmol/L (18-29) Blood Urea Nitrogen 9mg/dL (8-27) Creatinine 0.51mg/dL (0.76-1.27) Estimat Glomerular Filtration Rate 173mL/min (>59) Glucose Level 102mg/dL (60-99) Calcium Level 7.3mg/dL (8.5-10.1) Magnesium Level 1.6mg/dL (1.6-2.6) Total Bilirubin 3.9mg/dL (0.0-1.2) Aspartate Amino Transf (AST/SGOT) 141U/L (0-50) Alanine Aminotransferase (ALT/SGPT) 130U/L (0-44) Alkaline Phosphatase 87U/L (25-160) Total Protein 5.7g/dL (6.4-8.4) Albumin 2.8g/dL (3.4-5.0) Microbiology Results Stool PCR negative except for an enteropathic Escherichia coli, of unclear clinical significance as he had no gastroenterology symptoms such as diarrhea. Discharge Medications Discharge Medications Aspirin (Aspirin) 81 Mg Tablet 81 MG PO DAILY (Reported) Atenolol (Atenolol) 25 Mg Tablet 25 MG PO DAILY (Reported) Cephalexin (Cephalexin) 500 Mg Capsule 500 MG PO QID Prescribed by: BETO DEAN MD Losartan Potassium (Losartan Potassium) 50 Mg Tablet 50 MG PO DAILY (Reported) Metformin (Metformin) 500 Mg Tablet 500 MG PO DAILY (Reported) Omeprazole Magnesium (Prilosec Otc) 20 Mg Tablet.dr 20 MG PO DAILY (Reported) Followup Plan Disposition: Home, with son Discharge Diet: Heart Healthy Discharge Activity: Limited until seen by PCP Patient Instructions Would like to have you hold Coumadin for 2 weeks. Hold metformin for 2 days and resume on April 28. Would also like to have you for your atorvastatin for the next 2 weeks until we repeat your liver function tests. I doubt that this is contributing to her liver function test elevation but it could be partially responsible. Would like to have you see either Dr. Lazcano or your new primary care doctor in 2 weeks. That time would like to do a repeat CMP to check liver functions and electrolytes as well as a CBC to check your blood count. To improve your health you absolutely have to stay away from alcohol. Time spent 50 minutes Beto Dean MD May 10, 2016 13:58
== END 2016-04-26 14:22 | disposition home or self-care (01) | DRG 312 ==
LOC: SED 09:44 → EDBD 09:44 → OFED 11:34 → MPC 14:24 → PCC 22:20
PROVIDERS: ADMIT Family Medicine; ATTEND Family Medicine
PROC: 30233N1 Transfusion of Nonautologous Red Blood Cells into Peripheral Vein, Percutaneous Approach (ICD-10-PCS; 2016-04-23)
PROC: 30233K1 Transfusion of Nonautologous Frozen Plasma into Peripheral Vein, Percutaneous Approach (ICD-10-PCS; 2016-04-23)
PROC: 0DJ08ZZ Inspection of Upper Intestinal Tract, Via Natural or Artificial Opening Endoscopic (ICD-10-PCS; principal; 2016-04-23 11:45)
PROC: 0DJD8ZZ Inspection of Lower Intestinal Tract, Via Natural or Artificial Opening Endoscopic (ICD-10-PCS; 2016-04-24)
DX: R55 Syncope and collapse (principal); K92.1 Melena; E87.2 Acidosis; N17.9 Acute kidney failure, unspecified; D62 Acute posthemorrhagic anemia; D68.32 Hemorrhagic disorder due to extrinsic circulating anticoagulants; S70.02XA Contusion of left hip, initial encounter; I25.10 Atherosclerotic heart disease of native coronary artery without angina pectoris; I48.0 Paroxysmal atrial fibrillation; Z86.73 Personal history of transient ischemic attack (TIA), and cerebral infarction without residual deficits; I10 Essential (primary) hypertension; Z79.01 Long term (current) use of anticoagulants; E11.9 Type 2 diabetes mellitus without complications; R29.6 Repeated falls; F17.210 Nicotine dependence, cigarettes, uncomplicated; K57.30 Diverticulosis of large intestine without perforation or abscess without bleeding; K70.10 Alcoholic hepatitis without ascites; F10.10 Alcohol abuse, uncomplicated